=== PATIENT | male | born 1985 | race Caucasian/White ===

== ENCOUNTER 2020-11-18 09:02 | Emergency (ER) | payer OTHER, SELFPAY ==
[2020-11-18] VITALS (54 sets, daily range): BP systolic 80–174; BP diastolic 55–107; PULSE 88–177; RESP 16–43; TEMP 36.6; O2SAT 90–99
[2020-11-18] MEDS: SODIUM CHLORIDE 0.9% 1,000 ML 1000 ML IV (09:19)
[2020-11-18] MEDS: ADENOSINE 6 MG/2 ML VIAL IV (09:22)
--- NOTE | 2020-11-18 09:22 | DI.RAD.S_ITS ---
PROCEDURE: XR CHEST 1V INDICATIONS: chest pain and rapid heart rate TECHNIQUE: One view of the chest was acquired. COMPARISON: None. FINDINGS: Surgical changes and devices: None. Lungs and pleura: Moderate multifocal patchy airspace opacity within the bilateral upper lungs, right mid lung, and bilateral lung bases. No pleural effusions or pneumothorax. Mediastinum: Mediastinal contours appear normal. Heart size is normal. Bones and chest wall: No suspicious bony lesions. Overlying soft tissues appear unremarkable. IMPRESSION: Moderate multifocal pneumonia. Continued plain film surveillance is recommended to ensure resolution, and to exclude underlying or central malignancy. Dictated by: Dayana Mohamud M.D. on 11/18/2020 at 9:42 Approved by: Dayana Mohamud M.D. on 11/18/2020 at 9:42
[2020-11-18] MEDS: ADENOSINE 6 MG/2 ML VIAL 12 MG IV (09:25)
[2020-11-18] MEDS: dilTIAZem 5 MG/ML SDV 25 MG IV (09:30)
[2020-11-18 09:40] LABS: Add Manual Diff / Slide Review NO; Basophils Absolute Auto 0 /uL (0-100); Basophils Percent Auto 0.5 % (0-2); Eosinophils Absolute Auto 0 /uL (0-450); Eosinophils Percent Auto 0.5 % (2-4); Hematocrit 50.7 % (41-53); Hemoglobin 17.2 g/dL (13.5-17.5); Lymphocytes Absolute Auto 1300 /uL (1100-4500); Lymphocytes Percent Auto 13.8 % (25-40); Mean Corpuscular HGB Conc 33.8 % (30-36); Mean Corpuscular Hemoglobin 33.5 PG (26-34); Monocytes Absolute Auto 1000 /uL (0-900); Monocytes Percent Auto 11.4 % (3-14); Neutrophils Absolute Auto 6700 /uL (1500-7000); Neutrophils Percent Auto 73.8 % (50-75); Platelet Count 249 X10^3/uL (150-400); Red Blood Cell Count 5.12 X10^6/uL (4.5-5.9); Red Cell Distribution Width 12.9 % (11.6-14.8); White Blood Cell Count 9.1 X10^3/uL (4.5-11.0)
[2020-11-18 09:42] LABS: INR 1.2 (0.9-1.3)
--- NOTE | 2020-11-18 09:43 | ED.ARRPALP ---
HPI - Arrhythmia/Palpitations General Chief Complaint: Abdominal Pain Stated Complaint: swallon stomach/painful Time Seen by Provider: 11/18/20 09:22 Source: patient Mode of arrival: Ambulatory Limitations: no limitations History of Present Illness HPI narrative: Patient is a 35-year-old male with no past medical history presenting with is abdominal discomfort. He actually says he has been short of breath is for about the last 3-4 days. It is worse with exertion and he has positive orthopnea. No lower extremity edema. He has had some sweats and chills. He is noted to have heart rate in the 170s. He denies any chest pain palpitations. He really just felt like his abdomen was getting Gutierrez. He feels a little nauseous no vomiting. He actually was tested for COVID yesterday which she says was negative. He has no known exposures that he knows of. MD complaint: rapid heart beat Related Data Home Medications Medication Instructions Recorded Confirmed No Known Home Medications 11/18/20 11/18/20 Allergies Allergy/AdvReac Type Severity Reaction Status Date / Time No Known Drug Allergies Allergy Verified 11/18/20 09:42 Review of Systems Review of Systems ROS Unobtainable: All systems reviewed & are unremarkable except as noted in HPI and below Constitutional Constitutional: Reports body ache(s), Reports chills and Reports fatigue ENT Ears, Nose, Mouth, and Throat: Denies change in voice, Denies vertigo, Denies dizziness, Denies neck pain and Denies sore throat Cardiovascular Cardiovascular: Reports as per HPI, Denies syncope, Reports irregular heart rhythm, Reports dyspnea on exertion and Reports orthopnea Respiratory Respiratory: Reports cough and Reports dyspnea on exertion Gastrointestinal Gastrointestinal: Reports bloating and Reports nausea Musculoskeletal Musculoskeletal: Denies back pain, Denies myalgias and Denies neck pain Integumentary/Breasts Skin/Breast: Denies pruritus, Denies erythema, Denies rash and Denies wounds Neurologic Neurologic: Denies vertigo, Denies dizziness and Denies syncope Endocrine Endocrine: Reports fatigue Patient History Medical History Patient denies medical problems Social History Smoking Status: Former smoker Smoking Status: Former smoker alcohol intake frequency: 0-2 drinks per day Substance Use Type: does not use Exam Initial Vital Signs Initial Vital Signs: Vital Signs Temperature 97.8 F 11/18/20 09:10 Pulse Rate 177 H 11/18/20 09:10 Respiratory Rate 21 11/18/20 09:10 Blood Pressure 173/99 H 11/18/20 09:10 Pulse Oximetry 99 11/18/20 09:10 GENERAL: Young 35-year-old male and in no acute distress. HEENT: Head atraumatic,EOMI, pupils reactive, face symmetric, moist mucous membranes CARDIOVASCULAR: Tachycardic regular no murmur RESPIRATORY: Crackles in right base no respiratory distress ABDOMEN: Soft, nontender. Normoactive bowel sounds all 4 quadrants. No guarding or rebound. RECTAL: Hemoccult-positive, no hemorrhoids, nontender : No CVA tenderness EXTREMITIES: Normal range of motion, no clubbing or edema. Neurovascularly intact NEUROLOGICAL: Alert and oriented x4.Normal gait and speech. SKIN: Warm, dry, no laceration, no petechiae, no rashes or lesions. Course Orders Ordered: ED Orders 11/18/20 10:56 US abdomen limited Stat 11/18/20 11:37 Urinalysis and Microscopic Stat Urine Drug Screen, Rapid Stat 11/18/20 12:03 ABG [Arterial Blood Gas] Stat 11/18/20 12:25 High flow/High humidity nasal NOW Discontinued Medications Adenosine (Adenosine 6 Mg/2 Ml Vial) 6 mg IV NOW ONE Stop: 11/18/20 09:23 Last Admin: 11/18/20 09:22 Dose: 6 mg Documented by: OLE Adenosine (Adenosine 6 Mg/2 Ml Vial) 12 mg IV NOW ONE Stop: 11/18/20 09:21 Last Admin: 11/18/20 09:25 Dose: 12 mg Documented by: OLE Aspirin (Aspirin 81 Mg Chew Tab) 324 mg PO NOW ONE Stop: 11/18/20 09:46 Last Admin: 11/18/20 09:56 Dose: 324 mg Documented by: OLE Furosemide (Furosemide 40 Mg/4 Ml Vial) 20 mg IV NOW ONE Stop: 11/18/20 11:12 Last Admin: 11/18/20 11:25 Dose: 20 mg Documented by: OLE Sodium Chloride (Normal Saline 0.9%) 1,000 mls @ 1,000 mls/hr IV CONT [place] Last Infusion: 11/18/20 13:29 Dose: 0 mls/hr Documented by: Infusion: 11/18/20 12:13 Dose: 0 mls/hr Documented by: Infusion: 11/18/20 09:25 Dose: 125 mls/hr Documented by: Admin: 11/18/20 09:19 Dose: 1,000 mls/hr Documented by: OLE Diltiazem HCl 125 mg/ Sodium (Chloride) 125 mls @ 5 mls/hr IV TITRATE [place]; Protocol Last Titration: 11/18/20 12:13 Dose: 0 mg/hr, 0 mls/hr Documented by: Titration: 11/18/20 10:56 Dose: 0 mg/hr, 0 mls/hr Documented by: Titration: 11/18/20 10:42 Dose: 15 mg/hr, 15 mls/hr Documented by: Titration: 11/18/20 10:24 Dose: 10 mg/hr, 10 mls/hr Documented by: Admin: 11/18/20 09:58 Dose: 5 mg/hr, 5 mls/hr Documented by: OLE Ceftriaxone Sodium/Dextrose (Rocephin) 2 gm in 50 mls @ 100 mls/hr IV NOW ONE Stop: 11/18/20 10:25 Last Infusion: 11/18/20 11:00 Dose: 0 mls/hr Documented by: Admin: 11/18/20 10:26 Dose: 100 mls/hr Documented by: OLE Azithromycin 500 mg/ Dextrose 250 mls @ 250 mls/hr IV NOW ONE Stop: 11/18/20 09:57 Last Infusion: 11/18/20 12:13 Dose: 0 mls/hr Documented by: Admin: 11/18/20 11:00 Dose: 250 mls/hr Documented by: OLE Metoprolol Tartrate (Metoprolol Tartrate 5 Mg/5 Ml Inj) 5 mg IV Q5M [place] Stop: 11/18/20 11:11 Last Admin: 11/18/20 11:15 Dose: 5 mg Documented by: Admin: 11/18/20 10:59 Dose: 5 mg Documented by: OLE Ondansetron HCl (Ondansetron 4 Mg/2 Ml Inj) 4 mg IV NOW ONE Stop: 11/18/20 11:57 Last Admin: 11/18/20 12:05 Dose: 4 mg Documented by: OLE Vital Signs Vital signs: Vital Signs - 8 hr 11/18/20 11:30 11/18/20 11:31 11/18/20 11:35 Pulse Rate 126 H 128 H 133 H Respiratory Rate 34 H 34 H 38 H Blood Pressure 174/91 H Pulse Oximetry 92 91 97 11/18/20 11:40 11/18/20 11:45 11/18/20 11:50 Pulse Rate 136 H 136 H 129 H Respiratory Rate 39 H 35 H 43 H Blood Pressure Pulse Oximetry 96 96 96 11/18/20 11:55 11/18/20 12:00 11/18/20 12:05 Pulse Rate 137 H 135 H 137 H Respiratory Rate 39 H 32 H 39 H Blood Pressure 80/60 L Pulse Oximetry 96 93 92 11/18/20 12:10 11/18/20 12:15 11/18/20 12:20 Pulse Rate 141 H 127 H 135 H Respiratory Rate 31 H 30 H 16 Blood Pressure 121/90 Pulse Oximetry 97 97 98 11/18/20 12:24 11/18/20 12:25 11/18/20 12:30 Pulse Rate 141 H 127 H 132 H Respiratory Rate 24 20 22 Blood Pressure 121/90 114/72 Pulse Oximetry 97 99 99 11/18/20 12:35 11/18/20 12:40 11/18/20 12:45 Pulse Rate 137 H 126 H 143 H Respiratory Rate 29 H 21 24 Blood Pressure 97/55 L Pulse Oximetry 98 99 99 11/18/20 12:50 11/18/20 12:55 11/18/20 13:00 Pulse Rate 144 H 138 H 146 H Respiratory Rate 23 25 H 24 Blood Pressure Pulse Oximetry 99 98 98 11/18/20 13:01 11/18/20 13:05 11/18/20 13:10 Pulse Rate 147 H 144 H 153 H Respiratory Rate 20 25 H 19 Blood Pressure 134/74 Pulse Oximetry 98 96 97 MDM - Arrhythmia/Palpitations Lab Data Attestation: I reviewed the patient's lab results. Result diagrams: 11/18/20 09:24 03/31/21 09:24 Labs: Lab Results 11/18/20 11/18/20 11/18/20 Range/Units 09:24 09:24 09:24 WBC 9.1 (4.5-11.0) X10^3/uL RBC 5.12 (4.5-5.9) X10^6/uL Hgb 17.2 (13.5-17.5) g/dL Hct 50.7 (41-53) % MCV 99.0 (80-100) fL MCH 33.5 (26-34) PG MCHC 33.8 (30-36) % RDW 12.9 (11.6-14.8) % Plt Count 249 (150-400) X10^3/uL Neut % (Auto) 73.8 (50-75) % Lymph % (Auto) 13.8 L (25-40) % [place] % (Auto) 11.4 (3-14) % Eos % (Auto) 0.5 L (2-4) % Baso % (Auto) 0.5 (0-2) % Neut # (Auto) 6700 (7194-0949) /uL Lymph # (Auto) 1300 (3299-0890) /uL [place] # (Auto) 1000 H (0-900) /uL Eos # (Auto) 0 (0-450) /uL Baso # (Auto) 0 (0-100) /uL PT 13.0 H (10.1-12.7) SECONDS INR 1.2 (0.9-1.3) APTT 37 H (26.4-36.2) SECONDS ABG pH (7.35-7.45) ABG pCO2 (35-45) mmHg ABG pO2 (80-100) mmHg ABG HCO3 (22-26) mmol/L ABG Total CO2 (21-31) mmol/L ABG O2 Saturation (95-100) % ABG Base Excess (-2-2) mmol/L FiO2 Sodium 136 L (137-145) mmol/L Potassium 4.4 (3.4-5.1) mmol/L Chloride 105 (98-107) mmol/L Carbon Dioxide 23 (22-32) mmol/L BUN 17 (9-20) mg/dL Creatinine 0.77 (0.66-1.25) mg/dL Estimated GFR > 60.0 (>60) mL/min BUN/Creatinine Ratio 22.1 H (6-22) Glucose 110 H (70-100) mg/dL Lactate (0.7-2.1) mmol/L Calcium 9.2 (8.4-10.2) mg/dL Total Bilirubin 1.9 H (0.2-1.3) mg/dL AST 48 (17-59) IU/L ALT 67 H (<50) IU/L Alkaline Phosphatase 77 (38-126) U/L Total Creatine Kinase 85 (55-170) U/L CK-MB (CK-2) TNP CK-MB (CK-2) Rel Index TNP Troponin I 0.045 H (0.01-0.034) ng/mL NT-Pro-B Natriuret Pep (<125) pg/mL Total Protein 6.9 (6.3-8.2) g/dL Albumin 4.0 (3.5-5.0) g/dL Globulin 2.9 (1.7-4.1) g/dL Albumin/Globulin Ratio 1.4 (1.0-2.8) Lipase 22 L (23-300) U/L Procalcitonin (<0.5) ng/mL TSH (0.47-4.68) uIU/mL Urine Color Urine Appearance Urine pH (4.5-8.0) Ur Specific [place] (1.000-1.035) Urine Protein (Negative) Urine Glucose (UA) (Negative) g/dL Urine Ketones (NEGATIVE) Urine Occult Blood (Negative) Urine Nitrate (Negative) Urine Bilirubin (NEGATIVE) Urine Urobilinogen (0.2) E.U./dL Ur Leukocyte Esterase (NEGATIVE) Urine RBC (0-5/HPF) Urine WBC (0-5/HPF) Urine Bacteria (None) Ur Culture Indicated? Micro UA Comment U Opiates 300ng/mL cut (Negative) Ur Oxycodone Screen (Negative) Urine Methadone Screen (Negative) Ur Barbiturates Screen (Negative) U Tricyclic Antidepress (Negative) Ur Phencyclidine Scrn (Negative) Ur Amphetamines Screen (Negative) U Methamphetamines Scrn (Negative) Ur MDMA Scrn (Ecstasy) (Negative) U Benzodiazepines Scrn (Negative) Urine Cocaine Screen (Negative) U Marijuana (THC) Screen (Negative) SARS-CoV-2 (PCR) (Negative) 11/18/20 11/18/20 11/18/20 Range/Units 09:29 09:29 09:29 WBC (4.5-11.0) X10^3/uL RBC (4.5-5.9) X10^6/uL Hgb (13.5-17.5) g/dL Hct (41-53) % MCV (80-100) fL MCH (26-34) PG MCHC (30-36) % RDW (11.6-14.8) % Plt Count (150-400) X10^3/uL Neut % (Auto) (50-75) % Lymph % (Auto) (25-40) % [place] % (Auto) (3-14) % Eos % (Auto) (2-4) % Baso % (Auto) (0-2) % Neut # (Auto) (6456-9989) /uL Lymph # (Auto) (2067-9963) /uL [place] # (Auto) (0-900) /uL Eos # (Auto) (0-450) /uL Baso # (Auto) (0-100) /uL PT (10.1-12.7) SECONDS INR (0.9-1.3) APTT (26.4-36.2) SECONDS ABG pH (7.35-7.45) ABG pCO2 (35-45) mmHg ABG pO2 (80-100) mmHg ABG HCO3 (22-26) mmol/L ABG Total CO2 (21-31) mmol/L ABG O2 Saturation (95-100) % ABG Base Excess (-2-2) mmol/L FiO2 Sodium (137-145) mmol/L Potassium (3.4-5.1) mmol/L Chloride (98-107) mmol/L Carbon Dioxide (22-32) mmol/L BUN (9-20) mg/dL Creatinine (0.66-1.25) mg/dL Estimated GFR (>60) mL/min BUN/Creatinine Ratio (6-22) Glucose (70-100) mg/dL Lactate 1.4 (0.7-2.1) mmol/L Calcium (8.4-10.2) mg/dL Total Bilirubin (0.2-1.3) mg/dL AST (17-59) IU/L ALT (<50) IU/L Alkaline Phosphatase (38-126) U/L Total Creatine Kinase (55-170) U/L CK-MB (CK-2) CK-MB (CK-2) Rel Index Troponin I (0.01-0.034) ng/mL NT-Pro-B Natriuret Pep 1700 H (<125) pg/mL Total Protein (6.3-8.2) g/dL Albumin (3.5-5.0) g/dL Globulin (1.7-4.1) g/dL Albumin/Globulin Ratio (1.0-2.8) Lipase (23-300) U/L Procalcitonin 0.11 (<0.5) ng/mL TSH 1.74 (0.47-4.68) uIU/mL Urine Color Urine Appearance Urine pH (4.5-8.0) Ur Specific [place] (1.000-1.035) Urine Protein (Negative) Urine Glucose (UA) (Negative) g/dL Urine Ketones (NEGATIVE) Urine Occult Blood (Negative) Urine Nitrate (Negative) Urine Bilirubin (NEGATIVE) Urine Urobilinogen (0.2) E.U./dL Ur Leukocyte Esterase (NEGATIVE) Urine RBC (0-5/HPF) Urine WBC (0-5/HPF) Urine Bacteria (None) Ur Culture Indicated? Micro UA Comment U Opiates 300ng/mL cut (Negative) Ur Oxycodone Screen (Negative) Urine Methadone Screen (Negative) Ur Barbiturates Screen (Negative) U Tricyclic Antidepress (Negative) Ur Phencyclidine Scrn (Negative) Ur Amphetamines Screen (Negative) U Methamphetamines Scrn (Negative) Ur MDMA Scrn (Ecstasy) (Negative) U Benzodiazepines Scrn (Negative) Urine Cocaine Screen (Negative) U Marijuana (THC) Screen (Negative) SARS-CoV-2 (PCR) (Negative) 11/18/20 11/18/20 11/18/20 Range/Units 09:52 11:37 11:37 WBC (4.5-11.0) X10^3/uL RBC (4.5-5.9) X10^6/uL Hgb (13.5-17.5) g/dL Hct (41-53) % MCV (80-100) fL MCH (26-34) PG MCHC (30-36) % RDW (11.6-14.8) % Plt Count (150-400) X10^3/uL Neut % (Auto) (50-75) % Lymph % (Auto) (25-40) % [place] % (Auto) (3-14) % Eos % (Auto) (2-4) % Baso % (Auto) (0-2) % Neut # (Auto) (6817-7616) /uL Lymph # (Auto) (2806-1878) /uL [place] # (Auto) (0-900) /uL Eos # (Auto) (0-450) /uL Baso # (Auto) (0-100) /uL PT (10.1-12.7) SECONDS INR (0.9-1.3) APTT (26.4-36.2) SECONDS ABG pH (7.35-7.45) ABG pCO2 (35-45) mmHg ABG pO2 (80-100) mmHg ABG HCO3 (22-26) mmol/L ABG Total CO2 (21-31) mmol/L ABG O2 Saturation (95-100) % ABG Base Excess (-2-2) mmol/L FiO2 Sodium (137-145) mmol/L Potassium (3.4-5.1) mmol/L Chloride (98-107) mmol/L Carbon Dioxide (22-32) mmol/L BUN (9-20) mg/dL Creatinine (0.66-1.25) mg/dL Estimated GFR (>60) mL/min BUN/Creatinine Ratio (6-22) Glucose (70-100) mg/dL Lactate (0.7-2.1) mmol/L Calcium (8.4-10.2) mg/dL Total Bilirubin (0.2-1.3) mg/dL AST (17-59) IU/L ALT (<50) IU/L Alkaline Phosphatase (38-126) U/L Total Creatine Kinase (55-170) U/L CK-MB (CK-2) CK-MB (CK-2) Rel Index Troponin I (0.01-0.034) ng/mL NT-Pro-B Natriuret Pep (<125) pg/mL Total Protein (6.3-8.2) g/dL Albumin (3.5-5.0) g/dL Globulin (1.7-4.1) g/dL Albumin/Globulin Ratio (1.0-2.8) Lipase (23-300) U/L Procalcitonin (<0.5) ng/mL TSH (0.47-4.68) uIU/mL Urine Color Yellow Urine Appearance Clear Urine pH 5.5 (4.5-8.0) Ur Specific [place] 1.010 (1.000-1.035) Urine Protein Trace H (Negative) Urine Glucose (UA) Trace H (Negative) g/dL Urine Ketones 1+ H (NEGATIVE) Urine Occult Blood Negative (Negative) Urine Nitrate Negative (Negative) Urine Bilirubin Negative (NEGATIVE) Urine Urobilinogen 0.2 (0.2) E.U./dL Ur Leukocyte Esterase Trace H (NEGATIVE) Urine RBC None seen (0-5/HPF) Urine WBC None seen (0-5/HPF) Urine Bacteria None seen (None) Ur Culture Indicated? Cult not indicated Micro UA Comment Microscopic normal U Opiates 300ng/mL cut Negative (Negative) Ur Oxycodone Screen Negative (Negative) Urine Methadone Screen Negative (Negative) Ur Barbiturates Screen Negative (Negative) U Tricyclic Antidepress Positive H (Negative) Ur Phencyclidine Scrn Negative (Negative) Ur Amphetamines Screen Negative (Negative) U Methamphetamines Scrn Negative (Negative) Ur MDMA Scrn (Ecstasy) Negative (Negative) U Benzodiazepines Scrn Negative (Negative) Urine Cocaine Screen Negative (Negative) U Marijuana (THC) Screen Negative (Negative) SARS-CoV-2 (PCR) Negative (Negative) 11/18/20 Range/Units 12:03 WBC (4.5-11.0) X10^3/uL RBC (4.5-5.9) X10^6/uL Hgb (13.5-17.5) g/dL Hct (41-53) % MCV (80-100) fL MCH (26-34) PG MCHC (30-36) % RDW (11.6-14.8) % Plt Count (150-400) X10^3/uL Neut % (Auto) (50-75) % Lymph % (Auto) (25-40) % [place] % (Auto) (3-14) % Eos % (Auto) (2-4) % Baso % (Auto) (0-2) % Neut # (Auto) (6731-4420) /uL Lymph # (Auto) (9657-0470) /uL [place] # (Auto) (0-900) /uL Eos # (Auto) (0-450) /uL Baso # (Auto) (0-100) /uL PT (10.1-12.7) SECONDS INR (0.9-1.3) APTT (26.4-36.2) SECONDS ABG pH 7.35 (7.35-7.45) ABG pCO2 34.1 L (35-45) mmHg ABG pO2 79 L (80-100) mmHg ABG HCO3 19 L (22-26) mmol/L ABG Total CO2 20 L (21-31) mmol/L ABG O2 Saturation 95 (95-100) % ABG Base Excess -7.0 L (-2-2) mmol/L FiO2 36 Sodium (137-145) mmol/L Potassium (3.4-5.1) mmol/L Chloride (98-107) mmol/L Carbon Dioxide (22-32) mmol/L BUN (9-20) mg/dL Creatinine (0.66-1.25) mg/dL Estimated GFR (>60) mL/min BUN/Creatinine Ratio (6-22) Glucose (70-100) mg/dL Lactate (0.7-2.1) mmol/L Calcium (8.4-10.2) mg/dL Total Bilirubin (0.2-1.3) mg/dL AST (17-59) IU/L ALT (<50) IU/L Alkaline Phosphatase (38-126) U/L Total Creatine Kinase (55-170) U/L CK-MB (CK-2) CK-MB (CK-2) Rel Index Troponin I (0.01-0.034) ng/mL NT-Pro-B Natriuret Pep (<125) pg/mL Total Protein (6.3-8.2) g/dL Albumin (3.5-5.0) g/dL Globulin (1.7-4.1) g/dL Albumin/Globulin Ratio (1.0-2.8) Lipase (23-300) U/L Procalcitonin (<0.5) ng/mL TSH (0.47-4.68) uIU/mL Urine Color Urine Appearance Urine pH (4.5-8.0) Ur Specific [place] (1.000-1.035) Urine Protein (Negative) Urine Glucose (UA) (Negative) g/dL Urine Ketones (NEGATIVE) Urine Occult Blood (Negative) Urine Nitrate (Negative) Urine Bilirubin (NEGATIVE) Urine Urobilinogen (0.2) E.U./dL Ur Leukocyte Esterase (NEGATIVE) Urine RBC (0-5/HPF) Urine WBC (0-5/HPF) Urine Bacteria (None) Ur Culture Indicated? Micro UA Comment U Opiates 300ng/mL cut (Negative) Ur Oxycodone Screen (Negative) Urine Methadone Screen (Negative) Ur Barbiturates Screen (Negative) U Tricyclic Antidepress (Negative) Ur Phencyclidine Scrn (Negative) Ur Amphetamines Screen (Negative) U Methamphetamines Scrn (Negative) Ur MDMA Scrn (Ecstasy) (Negative) U Benzodiazepines Scrn (Negative) Urine Cocaine Screen (Negative) U Marijuana (THC) Screen (Negative) SARS-CoV-2 (PCR) (Negative) Imaging Data Chest x-ray: Radiologist's Impresson: PROCEDURE: XR CHEST 1V INDICATIONS: chest pain and rapid heart rate TECHNIQUE: One view of the chest was acquired. COMPARISON: None. FINDINGS: Surgical changes and devices: None. Lungs and pleura: Moderate multifocal patchy airspace opacity within the bilateral upper lungs, right mid lung, and bilateral lung bases. No pleural effusions or pneumothorax. Mediastinum: Mediastinal contours appear normal. Heart size is normal. Bones and chest wall: No suspicious bony lesions. Overlying soft tissues appear unremarkable. IMPRESSION: Moderate multifocal pneumonia. Continued plain film surveillance is recommended to ensure resolution, and to exclude underlying or central malignancy. Dictated by: Dayana Mohamud M.D. on 11/18/2020 at 9:42 US - abdomen: Radiologist's Impresson: PROCEDURE: US ABDOMEN LIMITED INDICATIONS: Right upper quadrant abdominal pain, elevated bilirubin TECHNIQUE: Real-time focused scanning was performed of the abdomen, with image documentation. COMPARISON: None. FINDINGS: Normal size and appearance of the liver. No hepatic mass. No intrahepatic or extrahepatic biliary ductal dilatation. Normal appearance of the gallbladder with no sludge, gallstone, wall thickening, or pericholecystic fluid. Pancreas is not identified due to obscuration by overlying bowel gas. There is a small right pleural effusion partially visualized. IMPRESSION: No acute finding in the abdomen to explain symptoms. Small right pleural effusion noted. Dictated by: Zackary Arita M.D. on 11/18/2020 at 11:33 CT scan - chest: Radiologist's Impresson: PROCEDURE: CT ANGIO CHEST PE PROTOCOL INDICATIONS: New onset atrial fibrillation. TECHNIQUE: After the administration of intravenous contrast, 2 mm thick sections acquired from the pulmonary apices to the posterior costophrenic angles. 3-dimensional maximum intensity projection (MIP) coronal and sagittal reformats were then acquired through the thorax. For radiation dose reduction, the following was used: automated exposure control, adjustment of mA and/or kV according to patient size. COMPARISON: [facility], CR, XR CHEST 1V, 11/18/2020, 9:28. FINDINGS: Image quality: Excellent. Pulmonary arteries: Pulmonary arteries are normal in size, and demonstrate no intraluminal filling defects to suggest central pulmonary embolism. Lungs and pleura: There are bilateral nodular and ground-glass airspace opacities predominantly involving the upper lobes but also involving right middle lobe and lower lobes with peribronchial/perilymphatic distribution. Moderate pleural effusions present bilaterally with bibasilar atelectasis. There is bronchial wall thickening bilaterally. No pneumothorax. Central and peripheral airways are patent. Mediastinum: Heart size is moderately increased. No pericardial effusion. Enlarged mediastinal or hilar lymph nodes are present. For example, there is a 1 x 1.5 cm prevascular lymph node. A 1.1 cm paratracheal lymph node is identified. Enlarged right hilar lymph node measures 1.1 cm. Thoracic aorta is normal in caliber and enhancement. Esophagus is normal in caliber, without hiatal hernia. Bones and chest wall: No suspicious bony lesions. Ribs and thoracic spine appear intact throughout. Thyroid gland is normal. No axillary or supraclavicular adenopathy. Abdomen: Visualized upper abdominal solid organs appear normal in the early arterial phase of enhancement. IMPRESSION: 1. No evidence for pulmonary embolism. 2. Moderate cardiomegaly. There are filling defects in right atrium and right ventricle, which may be thrombi or artifacts. Recommend echocardiogram for further evaluation. Reflux of IV contrast into the hepatic vein suggests right heart strain. 3. Bilateral nodular and ground-glass airspace opacities, predominantly involving upper lobes with perilymphatic/peribronchial distribution. There is bronchial wall thickening. Differential diagnoses include infection, inflammatory process including pulmonary injuries from vaping, and, less likely, neoplasm. 4. Moderate pleural effusions bilaterally. 5. Mediastinal and bilateral hilar lymphadenopathy, most likely reactive. Recommend imaging follow-up and clinical correlation. The result was discussed with Dr. Ruiz. Dictated by: Christiano Rios M.D. on 11/18/2020 at 9:35 ECG Data Attestation: I personally reviewed and interpreted this ECG as follows: Prior ECG tracings: not available for review Interpretation: atrial fibrillation versus SVT rate [address] changes no delta waves seen all. Not likely to be WPW. MDM Narrative Medical decision making narrative: The patient initially tachycardic in the 170s and family regular no delta wave identified on the EKG. Possible SVT versus AFib. Adenosine given 6 mg with out response. 2nd dose of 12 mg given it did slow and appears irregular. He was and can been 10 mg of diltiazem for AFib with RVR which seem to slow his heart rate down into the 140s temporarily. I started increasing again to heart rate in the 160s. Diltiazem was stopped and he was given Lopressor pushes. Patient is relatively asymptomatic unclear when this started. Chest x-ray does show pneumonia he is having signs and symptoms of pneumonia. 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 He says he quit last week. He does have episodes where he gets quite diaphoretic and needs to sit on the edge of the bed. ABG does not show hypercapnia and he is oxygenating on 4 L of oxygen however he is placed on high-flow nasal cannula to a possibly help with some breathing. Patient continues to have intermittent abdominal discomfort. 11:25am jono, cardiology, agrees with transfer admit to hospitalist 12:35pm Dr. [place], hospitalist [facility] updated his symptoms test results and agree with transfer Critical Care Time Critical Care Time Critical Care Time: Yes Total Critical Care Time: 60 Attestation: The high probability of a clinically significant, sudden or life threatening deterioration of the [cardiovascular] system(s) required my full and direct attention, intervention and personal management. The aggregate critical care time was 60 minutes. This time is in addition to time spent performing reported procedures but includes the following: [x] Data Review and interpretation [x] Patient assessment and monitoring of vital signs [x] Documentation [x] Medication orders and management Discharge Plan Departure Patient Disposition: [facility] Clinical Impression: Atrial fibrillation with rapid ventricular response Pneumonia Qualifiers: Pneumonia type: due to unspecified organism Laterality: bilateral Lung location: unspecified part of lung Qualified Code(s): J18.9 - Pneumonia, unspecified organism Prescriptions: No Action No Known Home Medications RF: 0
[2020-11-18 09:44] LABS: PTT Partial Thromboplastin Tim 37 SECONDS (26.4-36.2)
[2020-11-18 09:47] LABS: Alanine Aminotransferase 67 IU/L (<50); Albumin Globulin Ratio 1.4 (1.0-2.8); Alkaline Phosphatase 77 U/L (38-126); Aspartate Aminotransferase 48 IU/L (17-59); BUN Creatinine Ratio 22.1 (6-22); Bilirubin Total 1.9 mg/dL (0.2-1.3); Blood Urea Nitrogen 17 mg/dL (9-20); Calcium 9.2 mg/dL (8.4-10.2); Carbon Dioxide 23 mmol/L (22-32); Chloride 105 mmol/L (98-107); Creatine Kinase 85 U/L (55-170); Estimated Glomerular Filt Rate > 60.0 mL/min (>60); Globulin 2.9 g/dL (1.7-4.1); Glucose 110 mg/dL (70-100); HEMOLYSIS 19 (0-50); Lipase 22 U/L (23-300); Potassium 4.4 mmol/L (3.4-5.1); Sodium 136 mmol/L (137-145); Total Protein 6.9 g/dL (6.3-8.2)
[2020-11-18] MEDS: ASPIRIN 81 MG CHEW TAB 324 MG PO (09:56)
--- NOTE | 2020-11-18 09:57 | DI.CT.S_ITS ---
PROCEDURE: CT ANGIO CHEST PE PROTOCOL INDICATIONS: New onset atrial fibrillation. TECHNIQUE: After the administration of intravenous contrast, 2 mm thick sections acquired from the pulmonary apices to the posterior costophrenic angles. 3-dimensional maximum intensity projection (MIP) coronal and sagittal reformats were then acquired through the thorax. For radiation dose reduction, the following was used: automated exposure control, adjustment of mA and/or kV according to patient size. COMPARISON: [facility], CR, XR CHEST 1V, 11/18/2020, 9:28. FINDINGS: Image quality: Excellent. Pulmonary arteries: Pulmonary arteries are normal in size, and demonstrate no intraluminal filling defects to suggest central pulmonary embolism. Lungs and pleura: There are bilateral nodular and ground-glass airspace opacities predominantly involving the upper lobes but also involving right middle lobe and lower lobes with peribronchial/perilymphatic distribution. Moderate pleural effusions present bilaterally with bibasilar atelectasis. There is bronchial wall thickening bilaterally. No pneumothorax. Central and peripheral airways are patent. Mediastinum: Heart size is moderately increased. No pericardial effusion. Enlarged mediastinal or hilar lymph nodes are present. For example, there is a 1 x 1.5 cm prevascular lymph node. A 1.1 cm paratracheal lymph node is identified. Enlarged right hilar lymph node measures 1.1 cm. Thoracic aorta is normal in caliber and enhancement. Esophagus is normal in caliber, without hiatal hernia. Bones and chest wall: No suspicious bony lesions. Ribs and thoracic spine appear intact throughout. Thyroid gland is normal. No axillary or supraclavicular adenopathy. Abdomen: Visualized upper abdominal solid organs appear normal in the early arterial phase of enhancement. IMPRESSION: 1. No evidence for pulmonary embolism. 2. Moderate cardiomegaly. There are filling defects in right atrium and right ventricle, which may be thrombi or artifacts. Recommend echocardiogram for further evaluation. Reflux of IV contrast into the hepatic vein suggests right heart strain. 3. Bilateral nodular and ground-glass airspace opacities, predominantly involving upper lobes with perilymphatic/peribronchial distribution. There is bronchial wall thickening. Differential diagnoses include infection, inflammatory process including pulmonary injuries from vaping, and, less likely, neoplasm. 4. Moderate pleural effusions bilaterally. 5. Mediastinal and bilateral hilar lymphadenopathy, most likely reactive. Recommend imaging follow-up and clinical correlation. The result was discussed with Dr. Ruiz. Dictated by: Christiano Rios M.D. on 11/18/2020 at 9:35 Approved by: Christiano Rios M.D. on 11/18/2020 at 10:30
[2020-11-18 09:58] LABS: Troponin I 0.045 ng/mL (0.01-0.034)
[2020-11-18] MEDS: dilTIAZem 125 MG in SODIUM CHLORIDE 0.9% 100 ML IV (09:58)
[2020-11-18] MEDS: CEFTRIAXONE 2 GM/50 ML FROZ.PIGGY IV (10:26)
[2020-11-18 10:34] LABS: Lactate (Lactic Acid) 1.4 mmol/L (0.7-2.1)
[2020-11-18 10:44] LABS: NT-proBNP (BNP-Adult 18+) 1700 pg/mL (<125)
[2020-11-18 10:47] LABS: COVID19 - ADMIT (NP swab/PCR) Negative (Negative)
[2020-11-18 10:51] LABS: Procalcitonin 0.11 ng/mL (<0.5)
--- NOTE | 2020-11-18 10:56 | DI.US.S_ITS ---
PROCEDURE: US ABDOMEN LIMITED INDICATIONS: Right upper quadrant abdominal pain, elevated bilirubin TECHNIQUE: Real-time focused scanning was performed of the abdomen, with image documentation. COMPARISON: None. FINDINGS: Normal size and appearance of the liver. No hepatic mass. No intrahepatic or extrahepatic biliary ductal dilatation. Normal appearance of the gallbladder with no sludge, gallstone, wall thickening, or pericholecystic fluid. Pancreas is not identified due to obscuration by overlying bowel gas. There is a small right pleural effusion partially visualized. IMPRESSION: No acute finding in the abdomen to explain symptoms. Small right pleural effusion noted. Dictated by: Zackary Arita M.D. on 11/18/2020 at 11:33 Approved by: Zackary Arita M.D. on 11/18/2020 at 11:34
[2020-11-18] MEDS: METOPROLOL TARTRATE 5 MG/5 ML INJ IV ×2 (10:59→11:15)
[2020-11-18] MEDS: AZITHROMYCIN 500 MG in DEXTROSE 5% IN WATER 250 ML IV (11:00)
[2020-11-18 11:06] LABS: Thyroid Stimulating Hormone 1.74 uIU/mL (0.47-4.68)
[2020-11-18] MEDS: FUROSEMIDE 40 MG/4 ML VIAL 20 MG IV (11:25)
[2020-11-18 11:50] LABS: Bacteria Urine None Seen; RBC Urine None Seen (0-5/HPF); WBC Urine None Seen (0-5/HPF)
[2020-11-18 11:52] LABS: Appearance Urine UA CLEAR; Bilirubin Urine UA NEGATIVE (NEGATIVE); Color Urine UA YELLOW; Glucose Urine UA TRACE g/dL (Negative); Ketones Urine UA 1+ (NEGATIVE); Leukocyte Esterase Urine UA TRACE (NEGATIVE); Nitrite Urine UA NEGATIVE (Negative); Occult Blood Urine UA NEGATIVE (Negative); Protein Urine UA TRACE (Negative); Urobilinogen Urine UA 0.2 E.U./dL (0.2); pH Urine UA 5.5 (4.5-8.0)
[2020-11-18 11:54] LABS: UR Morphine/Opiate cutoff 300 Negative (Negative); Ur Creatinine Normal (Normal); Ur Specific Gravity Normal (Normal); Urine Amphetamines Negative (Negative); Urine Barbiturates Negative (Negative); Urine Benzodiazepines Negative (Negative); Urine Cocaine Negative (Negative); Urine MDMA Negative (Negative); Urine Methadone Negative (Negative); Urine Methamphetamines Negative (Negative); Urine Oxycodone Negative (Negative); Urine Phencyclidine Negative (Negative); Urine Tetrahydrocannabinol Negative (Negative); Urine Tricyclic Antidepressant Positive (Negative); Urine pH Normal (Normal)
[2020-11-18 11:57] LABS: Culture Indicated Urine Cult Not Indicated; Urine Comments Microscopic Normal
[2020-11-18] MEDS: ONDANSETRON 4 MG/2 ML INJ IV (12:05)
[2020-11-18 13:38] LABS: Fractionated Inspired Oxygen 36; HCO3 ABG 19 mmol/L (22-26); Oxygen Saturation ABG 95 % (95-100); PCO2 ABG 34.1 mmHg (35-45); PO2 ABG 79 mmHg (80-100); TCO2 ABG 20 mmol/L (21-31); pH ABG 7.35 (7.35-7.45)
--- NOTE | 2020-11-18 20:11 | PC.NURSE ---
Pt's keys had been left @ ED to be picked up by friend. Have not been picked up yet. Called [facility] @[phone] and relayed message to pt that keys would be labeled and left at ED registration desk.
== END 2020-11-18 13:35 | disposition short-term general hospital (02) ==
PROVIDERS: Emergency Provider Emergency Medicine
DX: I48.91 Unspecified atrial fibrillation (principal); J18.9 Pneumonia, unspecified organism
CPT/HCPCS: 36415; 36600; 71045; 71275; 76705; 80053; 80305; 81001; 82550; 82805; 83605; 83690; 83880; 84145; 84443; 84484; 85025; 85610; 85730; 87040; 87635; 93005; 96361; 96365; 96367; 96375; 96376; 99285; 99291; J0153; J0696; J1940; J2405; Q9967

== ENCOUNTER 2021-03-08 16:22 | Emergency (ER) | payer OTHER, SELFPAY ==
[2021-03-08] VITALS (8 sets, daily range): BP systolic 134–143; BP diastolic 74–81; PULSE 76–90; RESP 12–32; TEMP 36.9; O2SAT 97–98; BMI 25.7
--- NOTE | 2021-03-08 16:31 | DI.RAD.S_ITS ---
PROCEDURE: XR CHEST 1V INDICATIONS: chest pain TECHNIQUE: One view of the chest was acquired. COMPARISON: [facility], CR, XR CHEST 1V, 11/18/2020, 9:28. FINDINGS: Surgical changes and devices: None. Lungs and pleura: Lungs are clear. No pleural effusions or pneumothorax. Mediastinum: Mediastinal contours appear normal. Heart size is normal. Bones and chest wall: No suspicious bony lesions. Overlying soft tissues appear unremarkable. IMPRESSION: No acute pulmonary process. Dictated by: Merari Dacosta M.D. on 03/08/2021 at 16:56 Approved by: Merari Dacosta M.D. on 03/08/2021 at 16:56
[2021-03-08 16:39] LABS: Add Manual Diff / Slide Review NO; Basophils Absolute Auto 0 /uL (0-100); Basophils Percent Auto 0.5 % (0-2); Eosinophils Absolute Auto 0 /uL (0-450); Eosinophils Percent Auto 0.1 % (2-4); Hematocrit 40.1 % (41-53); Hemoglobin 13.8 g/dL (13.5-17.5); Lymphocytes Absolute Auto 800 /uL (1100-4500); Lymphocytes Percent Auto 14.9 % (25-40); Mean Corpuscular HGB Conc 34.3 % (30-36); Mean Corpuscular Hemoglobin 32.8 PG (26-34); Mean Corpuscular Volume 95.5 fL (80-100); Monocytes Absolute Auto 500 /uL (0-900); Monocytes Percent Auto 9.6 % (3-14); Neutrophils Absolute Auto 4000 /uL (1500-7000); Neutrophils Percent Auto 74.9 % (50-75); Platelet Count 205 X10^3/uL (150-400); Red Cell Distribution Width 14.7 % (11.6-14.8); White Blood Cell Count 5.4 X10^3/uL (4.5-11.0)
[2021-03-08 16:45] LABS: INR 1.1 (0.9-1.3); Prothrombin Time 12.2 SECONDS (10.1-12.7)
--- NOTE | 2021-03-08 16:46 | ED.DIZZY ---
HPI - Dizziness General Chief Complaint: Dizziness Stated Complaint: dizzy/CHF Time Seen by Provider: 03/08/21 16:23 History of Present Illness HPI Narrative: Patient is a 35-year-old male with history alcohol abuse, heart failure, nonischemic cardiomyopathy alcohol induced, paroxysmal atrial fibrillation on Eliquis presenting today with dizziness and lightheadedness. he is supposed to wear a LifeVest for 3 months however he has not been wearing it he says he wore for about 2 months. He started drinking again he drank too much last night. He thought he would get walk in the [place] in order to feel better. He was walking when suddenly felt dizzy and lightheaded. He is able to look at his apple watch which showed a heart rate between 90 and 100. Did not pass out or lose consciousness. He denies any chest pain or palpitations. He got scared and called 911. He is overall feeling a little bit better. I am able to review you do have records. There is also supposed to have TTE and early February why not sure that he has had that. EF is 10-15%. Related Data Home Medications Medication Instructions Recorded Confirmed No Known Home Medications 11/18/20 11/18/20 Allergies Allergy/AdvReac Type Severity Reaction Status Date / Time No Known Drug Allergies Allergy Verified 03/08/21 17:48 Review of Systems Review of Systems ROS Unobtainable: All systems reviewed & are unremarkable except as noted in HPI and below Constitutional Constitutional: Denies chills Eyes Eyes: Denies blurry vision ENT Ears, Nose, Mouth, and Throat: Reports dizziness and Denies mouth pain Cardiovascular Cardiovascular: Denies chest pain, Denies chest pain at rest, Denies syncope, Denies edema, Reports palpitations, Denies dyspnea and Denies dyspnea on exertion Respiratory Respiratory: Denies cough, Denies dyspnea and Denies dyspnea on exertion Gastrointestinal Gastrointestinal: Denies abdominal pain, Denies nausea and Denies vomiting Genitourinary Genitourinary: Denies urinary frequency and Denies urinary hesitancy Musculoskeletal Musculoskeletal: Denies muscle weakness Integumentary/Breasts Skin/Breast: Denies rash Neurologic Neurologic: Reports dizziness, Denies syncope, Denies memory loss and Denies seizure-like activity Psychiatric Psychiatric: Denies memory loss Endocrine Endocrine: Reports palpitations Patient History Medical History Former cigarette smoker Patient denies medical problems Vaping nicotine dependence, tobacco product Social History (System 11/19/20 @ 08:27 by Lady Daily Blandon) Smoking Status: Former smoker Smoking Status: Former smoker tobacco type: vaping alcohol intake frequency: 0-2 drinks per day Substance Use Type: does not use Exam Initial Vital Signs Initial Vital Signs: Vital Signs Temperature 98.4 F 03/08/21 16:28 Pulse Rate 87 03/08/21 16:28 Respiratory Rate 16 03/08/21 16:28 Blood Pressure 134/81 03/08/21 16:28 Pulse Oximetry 98 03/08/21 16:28 GENERAL: Alert surprisingly well-appearing 35-year-old male and in no acute distress. HEENT: Head atraumatic,EOMI, pupils reactive, face symmetric, moist mucous membrane CARDIOVASCULAR: Regular rate and rhythm without murmurs, rubs or gallops. RESPIRATORY: Breath sounds equal bilaterally, no wheezes rales or rhonchi. ABDOMEN: Soft, nontender. Normoactive bowel sounds all 4 quadrants. No guarding or rebound. EXTREMITIES: Normal range of motion, no clubbing or edema. Neurovascularly intact NEUROLOGICAL: Alert and oriented x4.Normal gait and speech. SKIN: Warm, dry, no laceration, no petechiae, no rashes or lesions. Course Orders Ordered: ED Orders 03/08/21 16:20 Complete Blood Count AUTO DIFF Stat Comprehensive Metabolic Panel Stat Lipase Stat Magnesium Stat NT-proBNP (BNP-Adult 18+) Stat Partial Thromboplastin Time Stat Prothrombin Time INR Stat Troponin & CK Cardiac Panel Stat 03/08/21 16:31 XR chest 1V Stat EKG-12 Lead Stat Vital Signs Vital signs: Vital Signs - 8 hr 03/08/21 16:28 03/08/21 17:13 03/08/21 17:15 Temperature 98.4 F Pulse Rate 87 86 90 Respiratory Rate 16 18 19 Blood Pressure 134/81 Pulse Oximetry 98 98 98 03/08/21 17:30 03/08/21 17:45 03/08/21 18:00 Temperature Pulse Rate 85 85 81 Respiratory Rate 15 21 32 H Blood Pressure Pulse Oximetry 97 98 98 03/08/21 18:04 03/08/21 18:15 Temperature Pulse Rate 76 82 Respiratory Rate 12 12 Blood Pressure 143/74 H Pulse Oximetry 97 98 MDM - Dizziness Lab Data Attestation: I reviewed the patient's lab results. Result diagrams: 03/08/21 16:20 03/08/21 16:20 Labs: Lab Results 03/08/21 03/08/21 03/08/21 Range/Units 16:20 16:20 16:20 WBC 5.4 (4.5-11.0) X10^3/uL RBC 4.20 L (4.5-5.9) X10^6/uL Hgb 13.8 (13.5-17.5) g/dL Hct 40.1 L (41-53) % MCV 95.5 (80-100) fL MCH 32.8 (26-34) PG MCHC 34.3 (30-36) % RDW 14.7 (11.6-14.8) % Plt Count 205 (150-400) X10^3/uL Neut % (Auto) 74.9 (50-75) % Lymph % (Auto) 14.9 L (25-40) % Love % (Auto) 9.6 (3-14) % Eos % (Auto) 0.1 L (2-4) % Baso % (Auto) 0.5 (0-2) % Neut # (Auto) 4000 (1164-1784) /uL Lymph # (Auto) 800 L (5368-4671) /uL Love # (Auto) 500 (0-900) /uL Eos # (Auto) 0 (0-450) /uL Baso # (Auto) 0 (0-100) /uL PT 12.2 (10.1-12.7) SECONDS INR 1.1 (0.9-1.3) APTT 37 H (26.4-36.2) SECONDS Sodium 134 L (137-145) mmol/L Potassium 3.9 (3.4-5.1) mmol/L Chloride 98 (98-107) mmol/L Carbon Dioxide 28 (22-32) mmol/L BUN 11 (9-20) mg/dL Creatinine 0.60 L (0.66-1.25) mg/dL Estimated GFR > 60.0 (>60) mL/min BUN/Creatinine Ratio 18.3 (6-22) Glucose 109 H (70-100) mg/dL Calcium 9.7 (8.4-10.2) mg/dL Magnesium 1.6 (1.6-2.3) mg/dL Total Bilirubin 1.2 (0.2-1.3) mg/dL AST 34 (17-59) IU/L ALT 23 (<50) IU/L Alkaline Phosphatase 50 (38-126) U/L Total Creatine Kinase 151 (55-170) U/L CK-MB (CK-2) 0.88 (<2.37) ng/mL CK-MB (CK-2) Rel Index 0.6 L (1.5-5.0) % Troponin I < 0.012 (0.01-0.034) ng/mL NT-Pro-B Natriuret Pep (<125) pg/mL Total Protein 7.7 (6.3-8.2) g/dL Albumin 4.5 (3.5-5.0) g/dL Globulin 3.2 (1.7-4.1) g/dL Albumin/Globulin Ratio 1.4 (1.0-2.8) Lipase 26 (23-300) U/L 03/08/21 Range/Units 16:20 WBC (4.5-11.0) X10^3/uL RBC (4.5-5.9) X10^6/uL Hgb (13.5-17.5) g/dL Hct (41-53) % MCV (80-100) fL MCH (26-34) PG MCHC (30-36) % RDW (11.6-14.8) % Plt Count (150-400) X10^3/uL Neut % (Auto) (50-75) % Lymph % (Auto) (25-40) % Love % (Auto) (3-14) % Eos % (Auto) (2-4) % Baso % (Auto) (0-2) % Neut # (Auto) (4163-1169) /uL Lymph # (Auto) (7168-0920) /uL Love # (Auto) (0-900) /uL Eos # (Auto) (0-450) /uL Baso # (Auto) (0-100) /uL PT (10.1-12.7) SECONDS INR (0.9-1.3) APTT (26.4-36.2) SECONDS Sodium (137-145) mmol/L Potassium (3.4-5.1) mmol/L Chloride (98-107) mmol/L Carbon Dioxide (22-32) mmol/L BUN (9-20) mg/dL Creatinine (0.66-1.25) mg/dL Estimated GFR (>60) mL/min BUN/Creatinine Ratio (6-22) Glucose (70-100) mg/dL Calcium (8.4-10.2) mg/dL Magnesium (1.6-2.3) mg/dL Total Bilirubin (0.2-1.3) mg/dL AST (17-59) IU/L ALT (<50) IU/L Alkaline Phosphatase (38-126) U/L Total Creatine Kinase (55-170) U/L CK-MB (CK-2) (<2.37) ng/mL CK-MB (CK-2) Rel Index (1.5-5.0) % Troponin I (0.01-0.034) ng/mL NT-Pro-B Natriuret Pep 13 (<125) pg/mL Total Protein (6.3-8.2) g/dL Albumin (3.5-5.0) g/dL Globulin (1.7-4.1) g/dL Albumin/Globulin Ratio (1.0-2.8) Lipase (23-300) U/L Imaging Data Chest x-ray: Radiologist's Impression: PROCEDURE: XR CHEST 1V INDICATIONS: chest pain TECHNIQUE: One view of the chest was acquired. COMPARISON: [facility], , XR CHEST 1V, 11/18/2020, 9:28. FINDINGS: Surgical changes and devices: None. Lungs and pleura: Lungs are clear. No pleural effusions or pneumothorax. Mediastinum: Mediastinal contours appear normal. Heart size is normal. Bones and chest wall: No suspicious bony lesions. Overlying soft tissues appear unremarkable. IMPRESSION: No acute pulmonary process. Dictated by: Merari Dacosta M.D. on 03/08/2021 at 16:56 ECG Data Interpretation: Normal sinus rhythm rate 78 IL interval 172 QTC 437 QRS 98 MDM Narrative Medical decision making narrative: Patient overall appears well he is not having any chest pain he is in normal sinus rhythm. We have had long discussions about his house is not a good idea to drink alcohol while on Eliquis, and the fact that alcohol is the cause of his heart problems to begin with. I have also stressed the importance of wearing his LifeVest. He understands he overall feels bad he recognizes that he needs to stop drinking. We discussed how he should taper off instead of stopping cold turkey. At this time he is showing no signs of heart failure BNP is negative he has no difficulty breathing blood work is overall reassuring. He did not pass out or have a syncopal episode. So that is also reassuring. 1830 Dr. [facility], at this time agrees with encouragement to be compliant and will follow-up in clinic Discharge Plan Departure Patient Disposition: Home Clinical Impression: Non-ischemic cardiomyopathy, Alcohol abuse Instructions: Alcohol Use Disorder, DI for Heart Failure Activity Restrictions/Additional Instructions: *You have been diagnosed with paroxysmal atrial fibrillation, congestive heart failure, alcohol abuse *What to do: It is imperative that he wear your life vest and follow-up with cardiology at [facility]. I strongly recommend that you stop drinking however you need to decrease your drinking slowly and taper off for C do not go through withdrawals. *Continue to take medications as directed At your request you're medications have been faxed to *Follow up with your primary care provider in 2-3 days Follow-up with [facility] call tomorrow to schedule appointment I spoke with them today *Return to ER if you should have increasing palpitations shortness of breath chest pain passing out or any new, worsening or concerning symptoms Prescriptions: No Action No Known Home Medications RF: 0
[2021-03-08 16:47] LABS: PTT Partial Thromboplastin Tim 37 SECONDS (26.4-36.2)
[2021-03-08 16:50] LABS: Alanine Aminotransferase 23 IU/L (<50); Albumin 4.5 g/dL (3.5-5.0); Albumin Globulin Ratio 1.4 (1.0-2.8); Alkaline Phosphatase 50 U/L (38-126); Aspartate Aminotransferase 34 IU/L (17-59); BUN Creatinine Ratio 18.3 (6-22); Bilirubin Total 1.2 mg/dL (0.2-1.3); Blood Urea Nitrogen 11 mg/dL (9-20); Calcium 9.7 mg/dL (8.4-10.2); Carbon Dioxide 28 mmol/L (22-32); Chloride 98 mmol/L (98-107); Creatine Kinase 151 U/L (55-170); Estimated Glomerular Filt Rate > 60.0 mL/min (>60); Globulin 3.2 g/dL (1.7-4.1); Glucose 109 mg/dL (70-100); HEMOLYSIS < 15 (0-50); Lipase 26 U/L (23-300); Magnesium 1.6 mg/dL (1.6-2.3); Potassium 3.9 mmol/L (3.4-5.1); Sodium 134 mmol/L (137-145); Total Protein 7.7 g/dL (6.3-8.2)
[2021-03-08 17:02] LABS: Troponin I < 0.012 ng/mL (0.01-0.034)
[2021-03-08 17:05] LABS: CKMB % Relative Index 0.6 % (1.5-5.0); Creatine Kinase MB 0.88 ng/mL (<2.37)
[2021-03-08 17:23] LABS: NT-proBNP (BNP-Adult 18+) 13 pg/mL (<125)
== END 2021-03-08 18:57 | disposition home or self-care (01) ==
PROVIDERS: Emergency Provider Emergency Medicine
DX: I42.8 Other cardiomyopathies (principal); F10.10 Alcohol abuse, uncomplicated; R07.9 Chest pain, unspecified
CPT/HCPCS: 36415; 71045; 80053; 82550; 82553; 83690; 83735; 83880; 84484; 85025; 85610; 85730; 93005; 93010; 99283; 99284

== ENCOUNTER → 2021-11-04 14:54 | Outpatient (CLI) | payer OTHER, SELFPAY ==
[2021-11-04 15:23] LABS: Add Manual Diff / Slide Review NO; Basophils Absolute Auto 0 /uL (0-100); Basophils Percent Auto 0.6 % (0-2); Eosinophils Absolute Auto 100 /uL (0-450); Eosinophils Percent Auto 1.5 % (2-4); Hematocrit 40.7 % (41-53); Hemoglobin 14.1 g/dL (13.5-17.5); Lymphocytes Absolute Auto 1400 /uL (1100-4500); Lymphocytes Percent Auto 26.9 % (25-40); Mean Corpuscular HGB Conc 34.6 % (30-36); Mean Corpuscular Hemoglobin 33.1 PG (26-34); Mean Corpuscular Volume 95.7 fL (80-100); Monocytes Absolute Auto 500 /uL (0-900); Monocytes Percent Auto 10.4 % (3-14); Neutrophils Absolute Auto 3100 /uL (1500-7000); Neutrophils Percent Auto 60.6 % (50-75); Platelet Count 224 X10^3/uL (150-400); Red Blood Cell Count 4.25 X10^6/uL (4.5-5.9); White Blood Cell Count 5.1 X10^3/uL (4.5-11.0)
[2021-11-04 15:36] LABS: Alanine Aminotransferase 21 IU/L (<50); Albumin Globulin Ratio 1.4 (1.0-2.8); Alkaline Phosphatase 48 U/L (38-126); Aspartate Aminotransferase 37 IU/L (17-59); Bilirubin Total 1.6 mg/dL (0.2-1.3); Blood Urea Nitrogen 12 mg/dL (9-20); Calcium 9.2 mg/dL (8.4-10.2); Carbon Dioxide 26 mmol/L (22-32); Chloride 99 mmol/L (98-107); Estimated Glomerular Filt Rate > 60.0 mL/min (>60); Globulin 3.5 g/dL (1.7-4.1); Glucose 95 mg/dL (70-100); HEMOLYSIS 19 (0-50); Potassium 4.3 mmol/L (3.4-5.1); Sodium 134 mmol/L (137-145); Total Protein 8.5 g/dL (6.3-8.2)
[2021-11-04 15:44] LABS: NT-proBNP (BNP-Adult 18+) < 11 pg/mL (<125)
== END ==
PROVIDERS: Referring Provider Internal Medicine Cardiovascular Disease; Visit Provider Internal Medicine Cardiovascular Disease
DX: I50.20 Unspecified systolic (congestive) heart failure (principal); I48.0 Paroxysmal atrial fibrillation
CPT/HCPCS: 36415; 80053; 83880; 85025

== ENCOUNTER 2023-08-21 10:39 | Inpatient (IN) | payer OTHER, SELFPAY ==
[2023-08-21] VITALS (53 sets, daily range): BP systolic 90–139; BP diastolic 57–97; PULSE 117–194; RESP 10–37; TEMP 32–36.7; O2SAT 86–100; BMI 24.9
--- NOTE | 2023-08-21 10:44 | DI.RAD.S_ITS ---
PROCEDURE: XR CHEST 1V INDICATIONS: chest pain TECHNIQUE: One view of the chest was acquired. COMPARISON: [facility], CR, XR CHEST 1 VIEW, 11/18/2020, 14:26. [facility], CR, XR CHEST 1V, 03/08/2021, 16:32. FINDINGS: Surgical changes and devices: None. Lungs and pleura: Perihilar interstitial infiltrates are seen. On this semiupright portable chest examination, no large pneumothorax or large pleural effusions are seen. Mediastinum: Mediastinal contours appear normal. Heart size is mildly to moderately enlarged. Bones and chest wall: No suspicious bony lesions. Overlying soft tissues appear unremarkable. IMPRESSION: Cardiomegaly with perihilar interstitial infiltrates. CHF fluid overload with the suspected. Dictated by: Riccardo Faith M.D. on 08/21/2023 at 10:30 Approved by: Riccardo Faith M.D. on 08/21/2023 at 10:31
[2023-08-21] MEDS: dilTIAZem 5 MG/ML SDV 10 MG IV (10:49)
[2023-08-21] MEDS: SODIUM CHLORIDE 0.9% 1,000 ML 1000 ML IV (10:53)
--- NOTE | 2023-08-21 10:55 | ED.ARRPALP ---
HPI - Arrhythmia/Palpitations General Chief Complaint: Arrhythmia/Palpitations Stated Complaint: heart problems Time Seen by Provider: 08/21/23 10:44 History of Present Illness HPI narrative: Patient is a 38-year-old male history paroxysmal atrial fibrillation alcohol abuse who has been sober for 30 days presenting today with heart palpitations. He is noted to be tachycardic heart rate in the 180s he reports that he has not taken his Eliquis medication for 1 month secondary to insurance issues. He is slightly pale and diaphoretic. He has some shortness of breath. Initially did look like SVT Valsalva maneuver was attempted but unsuccessful. Heart rate did respond to Cardizem decreased from the 180s to 150 Related Data Home Medications Medication Instructions Recorded Confirmed No Known Home Medications 11/18/20 11/18/20 Allergies Allergy/AdvReac Type Severity Reaction Status Date / Time No Known Drug Allergies Allergy Verified 03/08/21 17:48 Patient History Medical History Vaping nicotine dependence, tobacco product Former cigarette smoker Patient denies medical problems Social History Smoking Status: Former smoker Smoking Status: Former smoker tobacco type: vaping alcohol intake frequency: 0-2 drinks per day Substance Use Type: does not use Exam Initial Vital Signs Initial Vital Signs: Vital Signs Pulse Rate 194 H 08/21/23 10:42 GENERAL: Slightly pale diaphoretic awake over HEENT: Head atraumatic,EOMI, pupils reactive, face symmetric, moist mucous membranes CARDIOVASCULAR: Tachycardic regular no murmurs RESPIRATORY: Breath sounds equal bilaterally, no wheezes rales or rhonchi. ABDOMEN: Soft, nontender. Normoactive bowel sounds all 4 quadrants. No guarding or rebound. EXTREMITIES: Normal range of motion, no clubbing or edema. Neurovascularly intact NEUROLOGICAL: Alert and oriented x4.Normal gait and speech. SKIN: Warm, dry, no laceration, no petechiae, no rashes or lesions. Course Orders Ordered: ED Orders 08/21/23 10:44 XR chest 1V Stat 08/21/23 10:49 BNP [NT-proBNP (BNP-Adult 18+)] Stat Complete Blood Count AUTO DIFF Stat Comprehensive Metabolic Panel Stat Lipase Stat Troponin & CK Cardiac Panel Stat 08/21/23 10:51 EKG-12 Lead Stat Acetaminophen (Acetaminophen 325 Mg Tablet) 650 mg PO Q6H [facility] Last Admin: 08/21/23 12:51 Dose: 650 mg Documented By: RB Enoxaparin Sodium (Enoxaparin 40 Mg/0.4 Ml Syringe) 40 mg SUBCUT DAILY [facility] Last Admin: 08/21/23 12:51 Dose: 40 mg Documented By: RB Sodium Chloride (Normal Saline 0.9%) 1,000 mls @ 1,000 mls/hr IV CONT [facility] Last Infusion: 08/21/23 11:54 Dose: Infused Documented By: Admin: 08/21/23 10:53 Dose: 1,000 mls/hr Documented By: RB DILTIAZEM (Diltiazem 125 Mg/125 Ml-D5w) 125 mg in 125 mls @ 5 mls/hr IV TITRATE [facility]; Protocol Last Titration: 08/21/23 13:07 Dose: 7.5 mg/hr, 7.5 mls/hr Documented By: Admin: 08/21/23 12:04 Dose: 5 mg/hr, 5 mls/hr Documented By: CTS Sodium Chloride (Normal Saline 0.9%) 1,000 mls @ 100 mls/hr IV CONT [facility] Last Infusion: 08/21/23 13:03 Dose: Infused Documented By: Admin: 08/21/23 12:52 Dose: 100 mls/hr Documented By: RB Naloxone HCl (Naloxone 0.4 Mg/Ml Vial) 0.2 mg IV Q2MIN PRN PRN Reason: Opiate Reversal Discontinued Medications Apixaban (Apixaban 5 Mg Tablet) 5 mg PO NOW ONE Stop: 08/21/23 11:48 Last Admin: 08/21/23 12:03 Dose: 5 mg Documented By: CTS Carvedilol (Carvedilol 3.125 Mg Tablet) 6.25 mg PO NOW ONE Stop: 08/21/23 12:14 Last Admin: 08/21/23 12:30 Dose: 6.25 mg Documented By: RB Diltiazem HCl (Diltiazem 5 Mg/Ml Sdv) 10 mg IV NOW ONE Stop: 08/21/23 10:45 Last Admin: 08/21/23 10:49 Dose: 10 mg Documented By: RB Diltiazem HCl (Diltiazem 5 Mg/Ml Sdv) 20 mg IV NOW ONE Stop: 08/21/23 12:06 Last Admin: 08/21/23 12:12 Dose: 15 mg Documented By: CTS Vital Signs Vital signs: Vital Signs - 8 hr 08/21/23 10:42 08/21/23 10:43 08/21/23 10:43 Temperature Pulse Rate 194 H 183 H Respiratory Rate 16 Blood Pressure 139/95 H Pulse Oximetry 99 Oxygen Delivery Method 08/21/23 10:49 08/21/23 10:54 08/21/23 11:00 Temperature 98.0 F Pulse Rate 185 H 184 H Respiratory Rate 22 Blood Pressure 139/95 H 139/95 H 127/78 Pulse Oximetry 99 Oxygen Delivery Method Room Air 08/21/23 11:00 08/21/23 11:30 08/21/23 11:45 Temperature Pulse Rate 152 H 145 H 142 H Respiratory Rate 19 12 19 Blood Pressure Pulse Oximetry 96 94 96 Oxygen Delivery Method 08/21/23 12:00 08/21/23 12:00 08/21/23 12:10 Temperature Pulse Rate 138 H Respiratory Rate 23 Blood Pressure 121/75 118/76 Pulse Oximetry 94 Oxygen Delivery Method 08/21/23 12:10 08/21/23 12:11 08/21/23 12:11 Temperature Pulse Rate 162 H 159 H Respiratory Rate 26 H 21 Blood Pressure 107/74 Pulse Oximetry 97 95 Oxygen Delivery Method 08/21/23 12:12 Temperature Pulse Rate 154 H Respiratory Rate Blood Pressure 107/75 Pulse Oximetry Oxygen Delivery Method MDM - Arrhythmia/Palpitations Lab Data 08/21/23 10:49 08/21/23 10:49 Labs: Lab Results 08/21/23 Range/Units 10:49 WBC 9.8 (4.5-11.0) X10^3/uL RBC 4.69 (4.5-5.9) X10^6/uL Hgb 15.2 (13.5-17.5) g/dL Hct 44.6 (41-53) % MCV 95.0 (80-100) fL MCH 32.5 (26-34) PG MCHC 34.1 (30-36) % RDW 13.5 (11.6-14.8) % Plt Count 325 (150-400) X10^3/uL Neut % (Auto) 68.8 (50-75) % Lymph % (Auto) 15.7 L (25-40) % [place] % (Auto) 14.2 H (3-14) % Eos % (Auto) 0.4 L (2-4) % Baso % (Auto) 0.9 (0-2) % Neut # (Auto) 6700 (7258-9559) /uL Lymph # (Auto) 1500 (8783-4187) /uL [place] # (Auto) 1400 H (0-900) /uL Eos # (Auto) 0 (0-450) /uL Baso # (Auto) 100 (0-100) /uL Sodium 133 L (137-145) mmol/L Potassium 3.7 (3.4-5.1) mmol/L Chloride 100 (98-107) mmol/L Carbon Dioxide 24 (22-32) mmol/L BUN 20 (9-20) mg/dL Creatinine 0.75 (0.66-1.25) mg/dL Estimated GFR > 60 (>60) mL/min BUN/Creatinine Ratio 26.7 H (6-22) Glucose 138 H (70-100) mg/dL Calcium 9.3 (8.4-10.2) mg/dL Total Bilirubin 1.0 (0.2-1.3) mg/dL AST 36 (17-59) IU/L ALT 58 H (<50) IU/L Alkaline Phosphatase 70 (38-126) U/L Total Creatine Kinase 89 (55-170) U/L Troponin I 0.018 (0.01-0.034) ng/mL NT-Pro-B Natriuret Pep 2640 H (<125) pg/mL Total Protein 6.8 (6.3-8.2) g/dL Albumin 3.7 (3.5-5.0) g/dL Globulin 3.1 (1.7-4.1) g/dL Albumin/Globulin Ratio 1.2 (1.0-2.8) Lipase 30 (23-300) U/L Imaging Data Chest x-ray: Radiologist's Impresson: PROCEDURE: XR CHEST 1V INDICATIONS: chest pain TECHNIQUE: One view of the chest was acquired. COMPARISON: [facility], CR, XR CHEST 1 VIEW, 11/18/2020, 14:26. [facility], CR, XR CHEST 1V, 03/08/2021, 16:32. FINDINGS: Surgical changes and devices: None. Lungs and pleura: Perihilar interstitial infiltrates are seen. On this semiupright portable chest examination, no large pneumothorax or large pleural effusions are seen. Mediastinum: Mediastinal contours appear normal. Heart size is mildly to moderately enlarged. Bones and chest wall: No suspicious bony lesions. Overlying soft tissues appear unremarkable. IMPRESSION: Cardiomegaly with perihilar interstitial infiltrates. CHF fluid overload with the suspected. Dictated by: Riccardo Faith M.D. on 08/21/2023 at 10:30 Approved by: Riccardo Faith M.D. on 08/21/2023 at 10:31 ECG Data Interpretation: Atrial fibrillation rate [address] changes similar to prior MDM Narrative Medical decision making narrative: Patient 38-year-old male presents today with atrial fibrillation. Likely secondary to noncompliant with his medications. His heart rate has been pretty fast for at least 1 month. He occasionally has some shortness breath. Initially heart rate was in the 180s close to 200 possible SVT. Attempted Valsalva maneuver but was unsuccessful. He did respond well to Cardizem. He has not hypoxic. Blood work reviewed: No anemia no leukocytosis, normal kidney function sodium 133, troponin 0.018, BNP 2640 Chest x-ray cardiomegaly with perihilar infiltrates CHF fluid overload Patient in AFib with a RVR. He has given a dose of Eliquis he responded well to diltiazem once the initial 10 mg bolus for off heart rate is increased he was given a 20 mg bolus placed on a drip heart rate improved. He was also given his home dose of Coreg and Eliquis. On exam he does not look significantly fluid overloaded no significant edema. Elevated BNP and chest x-ray suggest CHF fluid overload. Not significantly hypoxic low suspicion for pulmonary embolism does have a history of AFib. It does not appear to be an alcohol withdrawal and reports no drinking for [address] Munoz updated patient's symptoms test results and accepts patient Discharge Plan Departure Patient Disposition: Admitted As Inpatient Clinical Impression: Atrial fibrillation with rapid ventricular response, CHF (congestive heart failure) Admit Date/Time: 08/21/23 12:13 Admit Provider: Oziel Munoz
--- NOTE | 2023-08-21 11:04 | PC.NURSE ---
Addendum entered by Gabe Hutton R.N. 08/21/23 11:06: Pt states he [place] on [address] [place] and then took a taxi to the ER here. Pt's and 4month daughter Ricky are at home on [facility]. Original Note: Pt states history of being sent to [facility] and then transferred to for cardiology. Pt states fractured valve in his heart, history of eliquis use which stopped aproximately a month ago due to insurance complications. Pt was dry heaving over the weekend, denies nausea at this time. Pt is diaphoretic, weakness and SOB, dizziness with movement/exertion.
[2023-08-21 11:11] LABS: Add Manual Diff / Slide Review NO; Basophils Absolute Auto 100 /uL (0-100); Basophils Percent Auto 0.9 % (0-2); Eosinophils Absolute Auto 0 /uL (0-450); Eosinophils Percent Auto 0.4 % (2-4); Hematocrit 44.6 % (41-53); Hemoglobin 15.2 g/dL (13.5-17.5); Lymphocytes Absolute Auto 1500 /uL (1100-4500); Lymphocytes Percent Auto 15.7 % (25-40); Mean Corpuscular HGB Conc 34.1 % (30-36); Mean Corpuscular Hemoglobin 32.5 PG (26-34); Monocytes Absolute Auto 1400 /uL (0-900); Monocytes Percent Auto 14.2 % (3-14); Neutrophils Absolute Auto 6700 /uL (1500-7000); Neutrophils Percent Auto 68.8 % (50-75); Platelet Count 325 X10^3/uL (150-400); Red Blood Cell Count 4.69 X10^6/uL (4.5-5.9); Red Cell Distribution Width 13.5 % (11.6-14.8); White Blood Cell Count 9.8 X10^3/uL (4.5-11.0)
[2023-08-21 11:18] LABS: Alanine Aminotransferase 58 IU/L (<50); Albumin 3.7 g/dL (3.5-5.0); Albumin Globulin Ratio 1.2 (1.0-2.8); Alkaline Phosphatase 70 U/L (38-126); Aspartate Aminotransferase 36 IU/L (17-59); BUN Creatinine Ratio 26.7 (6-22); Blood Urea Nitrogen 20 mg/dL (9-20); Calcium 9.3 mg/dL (8.4-10.2); Carbon Dioxide 24 mmol/L (22-32); Chloride 100 mmol/L (98-107); Creatine Kinase 89 U/L (55-170); Estimated Glomerular Filt Rate > 60 mL/min (>60); Globulin 3.1 g/dL (1.7-4.1); Glucose 138 mg/dL (70-100); HEMOLYSIS < 15 (0-50); Lipase 30 U/L (23-300); Potassium 3.7 mmol/L (3.4-5.1); Sodium 133 mmol/L (137-145); Total Protein 6.8 g/dL (6.3-8.2)
[2023-08-21 11:26] LABS: NT-proBNP (BNP-Adult 18+) 2640 pg/mL (<125)
[2023-08-21 11:30] LABS: Troponin I 0.018 ng/mL (0.01-0.034)
[2023-08-21] MEDS: APIXABAN 5 MG TABLET PO (12:03)
[2023-08-21] MEDS: DILTIAZEM 125 MG/125 ML PIGGYBACK IV (12:04)
[2023-08-21] MEDS: dilTIAZem 5 MG/ML SDV 20 MG IV (12:12)
--- NOTE | 2023-08-21 12:13 | PC.NURSE ---
Pt resting in bed. states feels mild SOB. HR 155. 20mg cardizem ordered IVP followed by infusion per OCT. 10mg cardizem given IVP and BP decreased from 121/70 to 107/systolic without change in HR. Nursing jugdement to give 15mg total and start infusion to keep BP above 100/systolic.
[2023-08-21] MEDS: carvediloL 3.125 MG TABLET 6.25 MG PO (12:30)
--- NOTE | 2023-08-21 12:48 | P.HP_ITS ---
History of Present Illness History of Present Illness Date Patient Seen: 08/21/23 Time Patient Seen: 12:48 Date of Onset of Symptoms: 08/21/23 Chief complaint: heart problems Narrative: The patient is a 38 your old male with a H/O Atrial fibrillation who ran out of his medications several weeks ago. He has a H/O alcohol abuse but has been sober for 30 days. He presented with a racing heart and had no dyspnea or chest pain. He was found to be in AF with RVR and was treated with IV diltiazem and a diltiazem drip. Initially, it looked like SVT and a valsalva maneuver was tried. He has been cardioverted in the past [facility]. The patient has not been in his oral anticoagulation for approximately 1 month. He denies any alcohol intake for about a month. He was started on diltiazem in the ED with minimal response and was also given an oral dose of carvedilol. Upon arrival to the CCU he was tachycardic with rates in the 150 range and somewhat hypotensive with a systolic in the 90s. The patient was then placed on an amiodarone bolus and infusion and diltiazem was stopped owing to low blood pressure. In addition the patient became diaphoretic but was not hypoxic. At this point the decision was made to trial BiPAP and continue amiodarone in hopes of obtaining better rate control. Acute decompensation would have to be treated with acute cardioversion, this would place the patient at risk for cardioembolic events. This was all explained to the patient. If he tolerates BiPAP we will plan on using Ativan as well to help him relax. [facility] Medical History Vaping nicotine dependence, tobacco product Former cigarette smoker Patient denies medical problems Social History household members: spouse Smoking Status: Former smoker alcohol intake: former Meds Home Medications and Allergies Home Medications Medication Instructions Recorded Confirmed Type No Known Home Medications 08/21/23 08/21/23 History Allergies Allergy/AdvReac Type Severity Reaction Status Date / Time No Known Drug Allergies Allergy Verified 03/08/21 17:48 Review of Systems Review of Systems Narrative: All else reviewed and otherwise negative. Exam Vital Signs (past 8 hours): - 08/21/23 10:42 08/21/23 10:43 08/21/23 10:43 Temperature Pulse Rate 194 H 183 H Respiratory Rate 16 Blood Pressure 139/95 H Pulse Oximetry 99 Oxygen Delivery Method 08/21/23 10:49 08/21/23 10:54 08/21/23 11:00 Temperature 98.0 F Pulse Rate 185 H 184 H Respiratory Rate 22 Blood Pressure 139/95 H 139/95 H 127/78 Pulse Oximetry 99 Oxygen Delivery Method Room Air 08/21/23 11:00 08/21/23 11:30 08/21/23 11:45 Temperature Pulse Rate 152 H 145 H 142 H Respiratory Rate 19 12 19 Blood Pressure Pulse Oximetry 96 94 96 Oxygen Delivery Method 08/21/23 12:00 08/21/23 12:00 08/21/23 12:10 Temperature Pulse Rate 138 H Respiratory Rate 23 Blood Pressure 121/75 118/76 Pulse Oximetry 94 Oxygen Delivery Method 08/21/23 12:10 08/21/23 12:11 08/21/23 12:11 Temperature Pulse Rate 162 H 159 H Respiratory Rate 26 H 21 Blood Pressure 107/74 Pulse Oximetry 97 95 Oxygen Delivery Method 08/21/23 12:12 08/21/23 12:15 08/21/23 12:30 Temperature Pulse Rate 154 H 141 H 148 H Respiratory Rate 24 Blood Pressure 107/75 108/77 Pulse Oximetry 93 Oxygen Delivery Method Oxygen Delivery Method Room Air Narrative Exam Narrative: NAD , oriented and with fluent speech. Uncomfortable in appearance, diaphoretic. Normocephalic. Normal oral mucosa. EOMI, pupils symmetric Neck supple with midline trachea Lungs clear with normal effort and rate Heart is tachycardic and irregular. Abdomen soft and NT. No leg edema Joints unremarkable Skin free of rash Objective Imaging Chest x-ray: My impression: Mild pulmonary edema. Radiologist's impression: Cardiomegaly with perihilar interstitial infiltrates. CHF fluid overload with the suspected. Labs 08/21/23 10:49 08/21/23 10:49 Labs: Laboratory Results - last 24 hr 08/21/23 10:49 WBC 9.8 RBC 4.69 Hgb 15.2 Hct 44.6 MCV 95.0 MCH 32.5 MCHC 34.1 RDW 13.5 Plt Count 325 Neut % (Auto) 68.8 Lymph % (Auto) 15.7 L [place] % (Auto) 14.2 H Eos % (Auto) 0.4 L Baso % (Auto) 0.9 Neut # (Auto) 6700 Lymph # (Auto) 1500 [place] # (Auto) 1400 H Eos # (Auto) 0 Baso # (Auto) 100 Sodium 133 L Potassium 3.7 Chloride 100 Carbon Dioxide 24 BUN 20 Creatinine 0.75 Estimated GFR > 60 BUN/Creatinine Ratio 26.7 H Glucose 138 H Calcium 9.3 Total Bilirubin 1.0 AST 36 ALT 58 H Alkaline Phosphatase 70 Total Creatine Kinase 89 Troponin I 0.018 NT-Pro-B Natriuret Pep 2640 H Total Protein 6.8 Albumin 3.7 Globulin 3.1 Albumin/Globulin Ratio 1.2 Lipase 30 Assessment & Plan Assessment & Plan narrative: 1. Atrial fibrillation with RVR, POA and active. 2. Mild pulmonary edema, POA and active. 3. Mild tachycardia associated hypotension. New and active. 3. H/O alcohol use disorder now sober for 30 days, stable. PLAN: Will stop oral Coreg and diltiazem drip owing to hypotension. We will continue amiodarone infusion following the bolus for rate control. We will trial BiPAP for dyspnea and labored breathing. If he tolerates BiPAP will use Ativan for anxiety. The patient will be diuresed once he has blood pressures that are reasonable enough to tolerate diuresis. The patient denies alcohol, however a suspicion for alcohol withdrawal at this point does exist we will monitor his response to Ativan. 45 minutes of critical care time was spent with this patient who is suffering from persistent tachycardia with hypotension and difficulty breathing. His risk of adverse outcomes a significant given his acute cardiovascular decompensation. Time Spent With Patient Time with patient: 30 to 49 minutes with 50% spent counseling/coordinating care Quality VTE Deep Vein Thrombosis/Pulmonary Embolism Present on Admission: No MIPS - Admit I confirm the patient?s Advance Care Plan is present, Code status is documented, Surrogate decision maker is in patient?s record [If Yes, STOP here]: Yes MIPS - Meds 'Current medications' to include all prescriptions, [id number] products, herbals, cannabis/cannabidiol products, and vitamin/mineral/dietary (nutritional) supplements. I have utilized all available resources to obtain, update, or review the patient?s current medications. [If Yes, STOP here]: Yes
[2023-08-21] MEDS: ACETAMINOPHEN 325 MG TABLET 650 MG PO ×2 (12:51→20:08)
[2023-08-21] MEDS: ENOXAPARIN 40 MG/0.4 ML SYRINGE SUBCUT (12:51)
[2023-08-21] MEDS: SODIUM CHLORIDE 0.9% 1,000 ML 100 ML IV (12:52)
--- NOTE | 2023-08-21 13:03 | PC.NURSE ---
NS infusion at 100ml/hr stopped for BNP and fluid overload noted on CXR. HR remains in 130s. Cardizem gtt increased to 7.5mg/hr. Pt tolerating well. BP 102/80. Pt c/o back pain. MD aware. tylenol order obtained and given. Report given to Neela, MANAGER SOFTWARE.
[2023-08-21] MEDS: AMIODARONE 150 MG/100 ML PIGGYBACK 600 MG IV ×2 (13:46→18:26)
[2023-08-21] MEDS: AMIODARONE 360 MG/200 ML PIGGYBACK 33.33 MG IV (13:47)
[2023-08-21] MEDS: LORazepam 2 MG/ML INJ 1 MG IV ×2 (14:53→19:02)
[2023-08-21] MEDS: FUROSEMIDE 20 MG/2 ML VIAL IV (15:32)
--- NOTE | 2023-08-21 15:46 | PC.NURSE ---
1320 Pt arrived into 228 per stretcher from ED DX afib with rvr. Dilt drip in progress at 7.5ml/hr, NBP 90s, HR 150. Pt unable to life flat in the bed Loud crackles noted throughout lung bernal, RR 30. Spoke with MD, diltiazem changed to amiodarone, bolus then 1mg/hr. Pt diaphoretic and restless. Placed on bipap and pt immediately began to feel improved breathing. BP improved to the 120's, ativan 1mg iv given to help pt relax.
[2023-08-21] MEDS: FUROSEMIDE 40 MG/4 ML VIAL IV (17:15)
[2023-08-21] MEDS: SODIUM CHLORIDE 0.9% 250 ML 21 ML IV (17:16)
[2023-08-21] MEDS: SODIUM CHLORIDE 0.9% FLUSH 10 ML IV (17:16)
[2023-08-21 17:30] LABS: MRSA (Nasal) PCR Not Detected (Not Detect)
--- NOTE | 2023-08-21 18:39 | P.TELICUCN_ITS ---
History of Present Illness Consult details IF CAMERA ACTIVATED, patient seen via real-time interactive audiovisual communication: Camera not activated Chief complaint: heart problems Reason for consult: Afib with RVR Requesting provider: Oziel Munoz Consent obtained for tele-special education professional care: Yes Patient Location: ICU Provider location (State): [place] Other participants/roles: spoke with hospitalist, and bedside RN by phone. Narrative: 38 yo M with a history of Atrial fibrillation s/p ablation. On coreg and eliquis. H/o of ETOH abuse, states has been sober x 30 DAYS. Has not taken medications a month and has been off eliquis. He presented feeling weak and SOB and was found to be in AF with RVR with rates in 190's He was initially given his home dose of coreg in ED and trialed on diltiazem but became hypotensive and was switched to amiodarone. Given a bolus of 150 mg amio and started on amio gtt lytes WNL wbc WNL bnp 2600 trop WNL CXR showed pulm edema, enlarged heart He was started on bipap, as he was noted to be diaphoretic with increased WOB. bipap improved his WOB as well as his blood pressure. He was given bolus of lasix and started on lasxi gtt PFSH Medical History Vaping nicotine dependence, tobacco product Former cigarette smoker Patient denies medical problems Social History household members: spouse Smoking Status: Former smoker alcohol intake: former Current Medications Current Medications Medications: Home Medications No Known Home Medications 08/21/23 [History Confirmed 08/21/23] Visit Medications (administered) Generic Name Dose Route Start Last Admin Trade Name Freq PRN Reason Stop Dose Admin Acetaminophen 650 mg 08/21/23 12:45 08/21/23 12:51 Acetaminophen 325 Mg Tablet PO 650 mg Q6H [place] Administration Enoxaparin Sodium 40 mg 08/21/23 12:45 08/21/23 12:51 Enoxaparin 40 Mg/0.4 Ml Syringe SUBCUT 40 mg DAILY [place] Administration DILTIAZEM 125 mg in 125 mls @ 5 mls/hr 08/21/23 12:00 08/21/23 14:00 Diltiazem 125 Mg/125 Ml-D5w IV 0 mg/hr TITRATE [place] 0 mls/hr Titration Protocol 5 MG/HR Amiodarone HCl/Dextrose 360 mg in 200 mls @ 33.333 mls/hr 08/21/23 13:36 08/21/23 13:47 Nexterone IV 08/21/23 19:35 33.33 mls/hr NOW ONE 33.33 mls/hr Administration Protocol Sodium Chloride 250 mls @ 21 mls/hr 08/21/23 15:34 08/21/23 17:16 Normal Saline 0.9% IV 21 mls/hr Q24H PRN Administration Flush Lorazepam 1 mg 08/21/23 14:23 08/21/23 14:53 Lorazepam 2 Mg/Ml Inj IV 1 mg Q4HR PRN Administration Anxiety Sodium Chloride 10 ml 08/21/23 15:35 08/21/23 17:16 Sodium Chloride 0.9% Flush IV 10 ml PRN PRN Administration Flush Exam Vital Signs (past 8 hours): - 08/21/23 10:42 08/21/23 10:43 08/21/23 10:43 Temperature Pulse Rate 194 H 183 H Respiratory Rate 16 Blood Pressure 139/95 H Pulse Oximetry 99 Oxygen Delivery Method Oxygen Flow Rate Fraction of Inspired Oxygen 08/21/23 10:49 08/21/23 10:54 08/21/23 11:00 Temperature 98.0 F Pulse Rate 185 H 184 H Respiratory Rate 22 Blood Pressure 139/95 H 139/95 H 127/78 Pulse Oximetry 99 Oxygen Delivery Method Room Air Oxygen Flow Rate Fraction of Inspired Oxygen 08/21/23 11:00 08/21/23 11:30 08/21/23 11:45 Temperature Pulse Rate 152 H 145 H 142 H Respiratory Rate 19 12 19 Blood Pressure Pulse Oximetry 96 94 96 Oxygen Delivery Method Oxygen Flow Rate Fraction of Inspired Oxygen 08/21/23 12:00 08/21/23 12:00 08/21/23 12:10 Temperature Pulse Rate 138 H Respiratory Rate 23 Blood Pressure 121/75 118/76 Pulse Oximetry 94 Oxygen Delivery Method Oxygen Flow Rate Fraction of Inspired Oxygen 08/21/23 12:10 08/21/23 12:11 08/21/23 12:11 Temperature Pulse Rate 162 H 159 H Respiratory Rate 26 H 21 Blood Pressure 107/74 Pulse Oximetry 97 95 Oxygen Delivery Method Oxygen Flow Rate Fraction of Inspired Oxygen 08/21/23 12:12 08/21/23 12:15 08/21/23 12:19 Temperature Pulse Rate 154 H 141 H Respiratory Rate 24 Blood Pressure 107/75 Pulse Oximetry 93 Oxygen Delivery Method BiPAP Oxygen Flow Rate Fraction of Inspired Oxygen 08/21/23 12:30 08/21/23 12:30 08/21/23 12:30 Temperature Pulse Rate 148 H 137 H Respiratory Rate 32 H Blood Pressure 108/77 108/77 Pulse Oximetry 93 Oxygen Delivery Method Oxygen Flow Rate Fraction of Inspired Oxygen 08/21/23 12:42 08/21/23 12:42 08/21/23 12:45 Temperature 97.7 F Pulse Rate 139 H 137 H Respiratory Rate 29 H 28 H Blood Pressure 90/58 L Pulse Oximetry 98 100 95 Oxygen Delivery Method Nasal Cannula BiPAP Oxygen Flow Rate 4 4 Fraction of Inspired Oxygen 08/21/23 13:00 08/21/23 13:00 08/21/23 13:18 Temperature Pulse Rate 141 H 155 H Respiratory Rate 27 H 19 Blood Pressure 102/80 Pulse Oximetry 94 Oxygen Delivery Method Oxygen Flow Rate Fraction of Inspired Oxygen 08/21/23 13:22 08/21/23 13:22 08/21/23 14:00 Temperature Pulse Rate 141 H 151 H Respiratory Rate 19 27 H Blood Pressure 90/58 L Pulse Oximetry 97 98 Oxygen Delivery Method Oxygen Flow Rate Fraction of Inspired Oxygen 08/21/23 14:00 08/21/23 14:15 08/21/23 14:15 Temperature Pulse Rate 135 H Respiratory Rate 36 H Blood Pressure 93/73 96/74 Pulse Oximetry 93 Oxygen Delivery Method Oxygen Flow Rate Fraction of Inspired Oxygen 08/21/23 14:30 08/21/23 14:33 08/21/23 14:36 Temperature Pulse Rate 138 H 141 H Respiratory Rate 31 H 26 H Blood Pressure 96/74 Pulse Oximetry 100 100 Oxygen Delivery Method Oxygen Flow Rate Fraction of Inspired Oxygen 08/21/23 14:36 08/21/23 15:00 08/21/23 15:10 Temperature Pulse Rate 139 H Respiratory Rate 26 H Blood Pressure 127/62 108/65 Pulse Oximetry 100 Oxygen Delivery Method Oxygen Flow Rate Fraction of Inspired Oxygen 08/21/23 15:10 08/21/23 15:30 08/21/23 15:35 Temperature Pulse Rate 142 H 144 H Respiratory Rate 29 H 32 H Blood Pressure 137/97 H Pulse Oximetry 99 99 Oxygen Delivery Method Oxygen Flow Rate Fraction of Inspired Oxygen 08/21/23 15:35 08/21/23 15:41 08/21/23 16:00 Temperature Pulse Rate 146 H 143 H Respiratory Rate 34 H 31 H Blood Pressure Pulse Oximetry 98 98 Oxygen Delivery Method BiPAP Oxygen Flow Rate Fraction of Inspired Oxygen 08/21/23 16:01 08/21/23 16:01 08/21/23 16:42 Temperature Pulse Rate 145 H 145 H Respiratory Rate 29 H 36 H Blood Pressure 137/65 98/60 Pulse Oximetry 98 100 Oxygen Delivery Method Oxygen Flow Rate Fraction of Inspired Oxygen 30 08/21/23 16:42 08/21/23 17:00 08/21/23 17:12 Temperature Pulse Rate 147 H 156 H Respiratory Rate 31 H 27 H Blood Pressure Pulse Oximetry 100 100 100 Oxygen Delivery Method BiPAP Nasal Cannula Oxygen Flow Rate 4 Fraction of Inspired Oxygen 08/21/23 17:15 08/21/23 17:15 08/21/23 18:00 Temperature Pulse Rate 148 H 154 H Respiratory Rate 28 H 30 H Blood Pressure 109/59 L Pulse Oximetry 99 99 Oxygen Delivery Method Oxygen Flow Rate Fraction of Inspired Oxygen 08/21/23 18:17 Temperature 97.9 F Pulse Rate Respiratory Rate Blood Pressure Pulse Oximetry Oxygen Delivery Method Oxygen Flow Rate Fraction of Inspired Oxygen Fraction of Inspired Oxygen 30 Oxygen Delivery Method Nasal Cannula Oxygen Flow Rate 4 Narrative Exam Narrative: exam not done at time of note, as patient in restroom Objective Imaging Chest x-ray: My impression: perihilar edema, enlarged cardiac sillhouette Labs 08/21/23 10:49 08/21/23 19:08 Labs: Laboratory Results - last 24 hr 08/21/23 08/21/23 10:49 14:01 WBC 9.8 RBC 4.69 Hgb 15.2 Hct 44.6 MCV 95.0 MCH 32.5 MCHC 34.1 RDW 13.5 Plt Count 325 Neut % (Auto) 68.8 Lymph % (Auto) 15.7 L [place] % (Auto) 14.2 H Eos % (Auto) 0.4 L Baso % (Auto) 0.9 Neut # (Auto) 6700 Lymph # (Auto) 1500 [place] # (Auto) 1400 H Eos # (Auto) 0 Baso # (Auto) 100 Sodium 133 L Potassium 3.7 Chloride 100 Carbon Dioxide 24 BUN 20 Creatinine 0.75 Estimated GFR > 60 BUN/Creatinine Ratio 26.7 H Glucose 138 H Calcium 9.3 Total Bilirubin 1.0 AST 36 ALT 58 H Alkaline Phosphatase 70 Total Creatine Kinase 89 Troponin I 0.018 NT-Pro-B Natriuret Pep 2640 H Total Protein 6.8 Albumin 3.7 Globulin 3.1 Albumin/Globulin Ratio 1.2 Lipase 30 Nasal Screen MRSA (PCR) Not detected Assessment & Plan Assessment and plan (1) CHF (congestive heart failure): Status: Acute (2) Atrial fibrillation with rapid ventricular response: Status: Acute Plan Afib with RVR, likely from med non adherance New congestive heart failure, likely tachycardia induced. At risk for thromboembolic event if cardioverted since he has been off eliquis for a month Would recommend he be transferred to icu that has cardiology services, where he can have a CORA and cardioversion- For now, continue amiodarone, as his BP did not tolerate dilt and coreg, which is concerning for depressed EF D/w hospitalist, can give another bolus of amio tonight. if BP is improved, and HR still uncontrolled, may trial small doses of metoprolol continue diuresis, trend Cr, BNP painting placed for accurate I/O Keep K >4, MG >2 Less likely infectious related, follow up blood cultures check procalcitonin r/o covid, flu He has been anxious and was given ativan/valium to tolerate the bipap- since he is in icu will trial low dose precedex as it may also have a favorable effect on HR COVID-19 COVID-19 status: Result pending (test ordered ) Time Spent With Patient Time with patient: 50 to 69 minutes with 50% spent counseling/coordinating care
[2023-08-21] MEDS: AMIODARONE 360 MG/200 ML PIGGYBACK 16.7 MG IV (19:02)
[2023-08-21] MEDS: ONDANSETRON 4 MG/2 ML INJ IV (19:03)
[2023-08-21 19:31] LABS: BUN Creatinine Ratio 22.3 (6-22); Blood Urea Nitrogen 23 mg/dL (9-20); Calcium 8.7 mg/dL (8.4-10.2); Carbon Dioxide 20 mmol/L (22-32); Chloride 102 mmol/L (98-107); Estimated Glomerular Filt Rate > 60 mL/min (>60); Glucose 189 mg/dL (70-100); HEMOLYSIS < 15 (0-50); Magnesium 1.7 mg/dL (1.6-2.3); Potassium 4.1 mmol/L (3.4-5.1); Sodium 132 mmol/L (137-145)
[2023-08-21 19:42] LABS: Troponin I 0.036 ng/mL (0.01-0.034)
[2023-08-21] MEDS: dexmedeTOMIDine in 0.9 % NaCL 400 MCG/100 ML PLAST..BAG IV (19:51)
[2023-08-21] MEDS: FUROSEMIDE 100 MG in SODIUM CHLORIDE 0.9% 50 ML IV (20:05)
[2023-08-21] MEDS: LIDOCAINE 2% (GLYDO) 6 ML GEL TOP (20:30)
[2023-08-21] MEDS: DIGOXIN 500 MCG/2 ML AMPUL 250 MCG IV (21:23)
[2023-08-21] MEDS: METOPROLOL TARTRATE 5 MG/5 ML INJ IV (22:01)
[2023-08-21 22:31] LABS: Influenza A - CEPHEID Flu A NEGATIVE (NEGATIVE); Influenza B - CEPHEID Flu B NEGATIVE (NEGATIVE)
[2023-08-21 22:40] LABS: COVID-19 CEPHEID 4-PLEX PCR Negative (Negative)
--- NOTE | 2023-08-21 22:47 | PC.NURSE ---
pt unable to get comfortable in bed; up to recliner; pt reports feeling better being upright; fan on, call light in reach
--- NOTE | 2023-08-21 23:58 | PM.EVENT ---
Event Note Date Patient Seen: 08/21/23 Time Patient Seen: 23:58 Event Note (Rapid Response, Code, or fall): Notified by RN patient is not making urine while on lasix gtt. On my camera assessment patient is sitting up and mildly tachypnea. Currently on 3 liters NC w/ SpO2 96%. Recommend against endotracheal intubation at this time. Will increase lasix gtt to 10 mg/hr and added metolazone 5 mg PO once. Agree with transfer to tertiary care for cardiology evaluation for CORA w/ cardioversion and possible renal replacement therapy to seek preload reduction. D/w bedside RN at bedside. Answered all questions.
[2023-08-22] VITALS (36 sets, daily range): BP systolic 69–122; BP diastolic 49–68; PULSE 57–139; RESP 18–31; O2SAT 87–100
[2023-08-22] MEDS: MORPHINE 2 MG/ML INJ 1 MG IV (00:06)
[2023-08-22] MEDS: metOLazone 2.5 MG TABLET 5 MG PO (00:08)
--- NOTE | 2023-08-22 00:11 | PC.NURSE ---
2350--Dr Nath monitored into room; spoke w/ pt; status report given re: bladder scan--14ml, meds given, ordering labs; orders rec'd; increased Lasix drip to 10mg/hr; morphine 1mg iv given and metolazone 5mg po given; pt remains in recliner, call light in reach
[2023-08-22 00:45] LABS: HCO3 ABG 19 mmol/L (23-27); PCO2 ABG 36.6 mmHg (35-45); PO2 ABG 78 mmHg (80-100); pH ABG 7.32 (7.35-7.45)
[2023-08-22 00:46] LABS: Fractionated Inspired Oxygen 32; Oxygen Saturation ABG 95 % (95-100); TCO2 ABG 20 mmol/L (23-27)
[2023-08-22 00:49] LABS: Add Manual Diff / Slide Review NO; Basophils Absolute Auto 0 /uL (0-100); Basophils Percent Auto 0.2 % (0-2); Eosinophils Absolute Auto 0 /uL (0-450); Hemoglobin 14.8 g/dL (13.5-17.5); Lymphocytes Absolute Auto 1300 /uL (1100-4500); Lymphocytes Percent Auto 11.3 % (25-40); Mean Corpuscular HGB Conc 33.7 % (30-36); Mean Corpuscular Hemoglobin 32.5 PG (26-34); Mean Corpuscular Volume 96.3 fL (80-100); Monocytes Absolute Auto 1300 /uL (0-900); Monocytes Percent Auto 10.8 % (3-14); Neutrophils Absolute Auto 9200 /uL (1500-7000); Neutrophils Percent Auto 77.7 % (50-75); Platelet Count 297 X10^3/uL (150-400); Red Blood Cell Count 4.57 X10^6/uL (4.5-5.9); Red Cell Distribution Width 13.9 % (11.6-14.8); White Blood Cell Count 11.9 X10^3/uL (4.5-11.0)
[2023-08-22 01:05] LABS: Lactate (Lactic Acid) 2.3 mmol/L (0.7-2.1)
[2023-08-22 01:06] LABS: Albumin 3.3 g/dL (3.5-5.0); Blood Urea Nitrogen 30 mg/dL (9-20); Calcium 8.7 mg/dL (8.4-10.2); Carbon Dioxide 17 mmol/L (22-32); Chloride 99 mmol/L (98-107); Estimated Glomerular Filt Rate > 60 mL/min (>60); Glucose 156 mg/dL (70-100); HEMOLYSIS < 15 (0-50); Magnesium 1.7 mg/dL (1.6-2.3); Phosphorous 7.2 mg/dL (2.5-4.5); Potassium 4.4 mmol/L (3.4-5.1); Sodium 129 mmol/L (137-145)
[2023-08-22 02:32] LABS: Reflexed Lactate in 2 Hours Y
[2023-08-22 03:59] LABS: Lactate 2HR (Lactic Acid Rflx) 1.4 mmol/L (0.7-2.1)
[2023-08-22 04:11] LABS: Troponin I 0.034 ng/mL (0.01-0.034)
[2023-08-22 04:17] LABS: Procalcitonin 0.24 ng/mL (<0.5)
--- NOTE | 2023-08-22 04:35 | PC.NURSE ---
0430--informed pt of pending transfer; pt in agreement; pt voided 175ml per urinal
[2023-08-22 07:06] LABS: Allen Test for ABG Passed? Yes, Passed; Blood Gas Collection Site Left Radial
[2023-08-22] MEDS: AMIODARONE 180 MG/100 ML PIGGYBACK 16.667 MG IV (07:06)
--- NOTE | 2023-08-22 07:09 | PM.DS.1 ---
History of Present Illness History of Present Illness Chief complaint: heart problems Narrative: The patient is a 38 your old male with a H/O Atrial fibrillation who ran out of his medications several weeks ago. He has a H/O alcohol abuse but has been sober for 30 days. He presented with a racing heart and had no dyspnea or chest pain. He was found to be in AF with RVR and was treated with IV diltiazem and a diltiazem drip. Initially, it looked like SVT and a valsalva maneuver was tried. He has been cardioverted in the past [facility]. The patient has not been in his oral anticoagulation for approximately 1 month. He denies any alcohol intake for about a month. He was started on diltiazem in the ED with minimal response and was also given an oral dose of carvedilol. Upon arrival to the CCU he was tachycardic with rates in the 150 range and somewhat hypotensive with a systolic in the 90s. The patient was then placed on an amiodarone bolus and infusion and diltiazem was stopped owing to low blood pressure. In addition the patient became diaphoretic but was not hypoxic. At this point the decision was made to trial BiPAP and continue amiodarone in hopes of obtaining better rate control. Acute decompensation would have to be treated with acute cardioversion, this would place the patient at risk for cardioembolic events. This was all explained to the patient. If he tolerates BiPAP we will plan on using Ativan as well to help him relax. Discharge Providers Provider Date of admission: 08/21/23 12:13 Discharge Date: 08/22/23 Consults: None Discharge provider: Oziel Munoz MD Summary Hospital Course Discharge Diagnosis: 1. Atrial fibrillation with rapid ventricular response. 2. Acute hypoxic respiratory failure. 3. Acute pulmonary edema secondary to cardiac dysfunction, echo not performed and degree of cardiac dysfunction unknown at time of discharge. 4. Hypervolemic hyponatremia. 5. History of alcohol abuse, none in the last month. Hospital Course: The patient was admitted for acute atrial fibrillation with rapid ventricular response. He also had acute hypoxic respiratory failure. The patient had been off from anticoagulation and rate control medications for about 1 month. The patient did not tolerate or improve with a diltiazem drip having persistent tachycardia and hypotension. An amiodarone bolus and drip were initiated. The patient required BiPAP for acute dyspnea. The patient was also refractory to 2 doses of Lasix, 20 mg IV and then 40 mg IV. The patient was placed on a Lasix drip on the evening of his admission. Because of persistent tachycardia despite amiodarone a transfer was initiated for transesophageal echo and cardioversion. The patient was accepted at [facility] and is being transported there at about 7:30 a.m. on August 22. The patient had stable vital signs at the time of transfer, and was off BiPAP and oxygen and speaking comfortably. Status at Discharge Cognitive/behavioral status at discharge: oriented Functional status at discharge: independent ambulation Overall status at discharge: patient is back to baseline Time Spent with Patient Time spent: Greater than 30 minutes Exam Vital Signs (past 8 hours): - 08/21/23 23:36 08/21/23 23:59 08/21/23 23:59 Pulse Rate 138 H Respiratory Rate 28 H Blood Pressure 90/64 Pulse Oximetry 96 99 Oxygen Delivery Method Nasal Cannula Oxygen Flow Rate 3 08/22/23 00:02 08/22/23 00:02 08/22/23 00:16 Pulse Rate 139 H Respiratory Rate 31 H Blood Pressure 92/54 L 93/53 L Pulse Oximetry 99 Oxygen Delivery Method Oxygen Flow Rate 08/22/23 00:16 08/22/23 00:30 08/22/23 00:30 Pulse Rate 132 H 133 H Respiratory Rate 30 H 29 H Blood Pressure 77/55 L Pulse Oximetry 96 95 Oxygen Delivery Method Oxygen Flow Rate 08/22/23 00:52 08/22/23 00:52 08/22/23 01:27 Pulse Rate 130 H Respiratory Rate 20 Blood Pressure 99/64 103/52 L Pulse Oximetry 96 Oxygen Delivery Method Oxygen Flow Rate 08/22/23 01:27 08/22/23 01:30 08/22/23 01:30 Pulse Rate 126 H 129 H Respiratory Rate 26 H 29 H Blood Pressure 102/64 Pulse Oximetry 98 96 Oxygen Delivery Method Oxygen Flow Rate 08/22/23 01:33 08/22/23 02:01 08/22/23 02:01 Pulse Rate 129 H 120 H Respiratory Rate 25 H 24 Blood Pressure 88/50 L Pulse Oximetry 92 93 Oxygen Delivery Method Oxygen Flow Rate 08/22/23 02:02 08/22/23 02:15 08/22/23 02:15 Pulse Rate 123 H 127 H Respiratory Rate 20 22 Blood Pressure 85/64 L Pulse Oximetry 93 87 L Oxygen Delivery Method Oxygen Flow Rate 08/22/23 02:30 08/22/23 02:30 08/22/23 02:45 Pulse Rate 127 H Respiratory Rate 21 Blood Pressure 90/65 96/57 L Pulse Oximetry 89 L Oxygen Delivery Method Oxygen Flow Rate 08/22/23 02:45 08/22/23 03:00 08/22/23 03:00 Pulse Rate 113 H 121 H Respiratory Rate 18 18 Blood Pressure 89/50 L Pulse Oximetry 96 96 Oxygen Delivery Method Oxygen Flow Rate 08/22/23 03:00 08/22/23 03:03 08/22/23 03:15 Pulse Rate 120 H Respiratory Rate 23 Blood Pressure 83/55 L Pulse Oximetry 98 Oxygen Delivery Method Nasal Cannula Oxygen Flow Rate 08/22/23 03:15 08/22/23 03:30 08/22/23 03:30 Pulse Rate 125 H 124 H Respiratory Rate 22 26 H Blood Pressure 80/59 L Pulse Oximetry 96 93 Oxygen Delivery Method Oxygen Flow Rate 08/22/23 04:00 08/22/23 04:02 08/22/23 04:02 Pulse Rate 119 H Respiratory Rate 23 Blood Pressure 87/66 L Pulse Oximetry 98 99 Oxygen Delivery Method Nasal Cannula Oxygen Flow Rate 2 08/22/23 04:25 08/22/23 04:25 08/22/23 04:30 Pulse Rate 128 H Respiratory Rate 27 H Blood Pressure 104/58 L 99/58 L Pulse Oximetry 95 Oxygen Delivery Method Oxygen Flow Rate 08/22/23 04:30 08/22/23 04:45 08/22/23 04:45 Pulse Rate 132 H 128 H Respiratory Rate 29 H 25 H Blood Pressure 95/66 Pulse Oximetry 100 97 Oxygen Delivery Method Oxygen Flow Rate 08/22/23 04:55 08/22/23 05:01 08/22/23 05:01 Pulse Rate 122 H 125 H Respiratory Rate 24 24 Blood Pressure 76/57 L Pulse Oximetry 100 99 Oxygen Delivery Method Oxygen Flow Rate 08/22/23 05:03 08/22/23 05:10 08/22/23 05:10 Pulse Rate 127 H 127 H Respiratory Rate 18 20 Blood Pressure 85/59 L Pulse Oximetry 100 97 Oxygen Delivery Method Oxygen Flow Rate 08/22/23 05:27 08/22/23 05:27 08/22/23 05:30 Pulse Rate 128 H Respiratory Rate 26 H Blood Pressure 85/58 L 95/68 Pulse Oximetry 98 Oxygen Delivery Method Oxygen Flow Rate 08/22/23 05:30 08/22/23 05:45 08/22/23 05:45 Pulse Rate 131 H 129 H Respiratory Rate 26 H 26 H Blood Pressure 77/61 L Pulse Oximetry 96 98 Oxygen Delivery Method Oxygen Flow Rate 08/22/23 05:50 08/22/23 05:50 08/22/23 06:09 Pulse Rate 130 H 126 H Respiratory Rate 26 H 23 Blood Pressure 83/63 L Pulse Oximetry 100 98 Oxygen Delivery Method Oxygen Flow Rate 08/22/23 06:09 08/22/23 06:15 08/22/23 06:15 Pulse Rate 130 H Respiratory Rate 31 H Blood Pressure 76/56 L 69/49 L Pulse Oximetry 100 Oxygen Delivery Method Oxygen Flow Rate 08/22/23 06:21 08/22/23 06:21 08/22/23 06:33 Pulse Rate 126 H Respiratory Rate 23 Blood Pressure 95/57 L 71/56 L Pulse Oximetry 99 Oxygen Delivery Method Oxygen Flow Rate 08/22/23 06:33 08/22/23 06:41 08/22/23 06:41 Pulse Rate 127 H 127 H Respiratory Rate 27 H 27 H Blood Pressure 85/67 L Pulse Oximetry 100 95 Oxygen Delivery Method Oxygen Flow Rate Fraction of Inspired Oxygen 30 Oxygen Delivery Method Nasal Cannula Oxygen Flow Rate 2 Narrative Exam Narrative: No acute distress Speaking comfortably Off oxygen Breathing at a normal rate and with normal effort. Has no peripheral edema No skin rash or lesions Is alert and oriented. Objective ECG Impression: Atrial fibrillation with rapid ventricular response. Imaging Chest x-ray: My impression: Pulmonary edema Radiologist's impression: Pulmonary edema Labs 08/22/23 00:36 08/22/23 00:36 Labs: Laboratory Results - last 24 hr 08/21/23 08/21/23 08/21/23 10:49 14:01 19:08 WBC 9.8 RBC 4.69 Hgb 15.2 Hct 44.6 MCV 95.0 MCH 32.5 MCHC 34.1 RDW 13.5 Plt Count 325 Neut % (Auto) 68.8 Lymph % (Auto) 15.7 L [place] % (Auto) 14.2 H Eos % (Auto) 0.4 L Baso % (Auto) 0.9 Neut # (Auto) 6700 Lymph # (Auto) 1500 [place] # (Auto) 1400 H Eos # (Auto) 0 Baso # (Auto) 100 ABG Sample Site ABG pH ABG pCO2 ABG pO2 ABG HCO3 ABG Total CO2 ABG O2 Saturation ABG Base Excess FiO2 Sodium 133 L 132 L Potassium 3.7 4.1 Chloride 100 102 Carbon Dioxide 24 20 L BUN 20 23 H Creatinine 0.75 1.03 Estimated GFR > 60 > 60 BUN/Creatinine Ratio 26.7 H 22.3 H Glucose 138 H 189 H Lactate Calcium 9.3 8.7 Phosphorus Magnesium 1.7 Total Bilirubin 1.0 AST 36 ALT 58 H Alkaline Phosphatase 70 Total Creatine Kinase 89 Troponin I 0.018 0.036 H NT-Pro-B Natriuret Pep 2640 H Total Protein 6.8 Albumin 3.7 Globulin 3.1 Albumin/Globulin Ratio 1.2 Lipase 30 Procalcitonin Nasal Screen MRSA (PCR) Not detected SARS-CoV-2 (PCR) Influenza A (RT-PCR) Influenza B (RT-PCR) 08/21/23 08/21/23 08/22/23 20:14 23:58 00:36 WBC 11.9 H RBC 4.57 Hgb 14.8 Hct 44.0 MCV 96.3 MCH 32.5 MCHC 33.7 RDW 13.9 Plt Count 297 Neut % (Auto) 77.7 H Lymph % (Auto) 11.3 L [place] % (Auto) 10.8 Eos % (Auto) 0.0 L Baso % (Auto) 0.2 Neut # (Auto) 9200 H Lymph # (Auto) 1300 [place] # (Auto) 1300 H Eos # (Auto) 0 Baso # (Auto) 0 ABG Sample Site Left radial ABG pH 7.32 L ABG pCO2 36.6 ABG pO2 78 L ABG HCO3 19 L ABG Total CO2 20 L ABG O2 Saturation 95 ABG Base Excess -7.0 L FiO2 32 Sodium 129 L Potassium 4.4 Chloride 99 Carbon Dioxide 17 L BUN 30 H Creatinine 1.50 H Estimated GFR > 60 BUN/Creatinine Ratio 20.0 Glucose 156 H Lactate 2.3 H Calcium 8.7 Phosphorus 7.2 H Magnesium 1.7 Total Bilirubin AST ALT Alkaline Phosphatase Total Creatine Kinase Troponin I 0.050 H NT-Pro-B Natriuret Pep Total Protein Albumin 3.3 L Globulin Albumin/Globulin Ratio Lipase Procalcitonin Nasal Screen MRSA (PCR) SARS-CoV-2 (PCR) Negative Influenza A (RT-PCR) Flu a negative Influenza B (RT-PCR) Flu b negative 08/22/23 08/22/23 03:30 03:38 WBC RBC Hgb Hct MCV MCH MCHC RDW Plt Count Neut % (Auto) Lymph % (Auto) [place] % (Auto) Eos % (Auto) Baso % (Auto) Neut # (Auto) Lymph # (Auto) [place] # (Auto) Eos # (Auto) Baso # (Auto) ABG Sample Site ABG pH ABG pCO2 ABG pO2 ABG HCO3 ABG Total CO2 ABG O2 Saturation ABG Base Excess FiO2 Sodium Potassium Chloride Carbon Dioxide BUN Creatinine Estimated GFR BUN/Creatinine Ratio Glucose Lactate 1.4 Calcium Phosphorus Magnesium Total Bilirubin AST ALT Alkaline Phosphatase Total Creatine Kinase Troponin I 0.034 NT-Pro-B Natriuret Pep Total Protein Albumin Globulin Albumin/Globulin Ratio Lipase Procalcitonin 0.24 Nasal Screen MRSA (PCR) SARS-CoV-2 (PCR) Influenza A (RT-PCR) Influenza B (RT-PCR) [facility] Medical History Vaping nicotine dependence, tobacco product Former cigarette smoker Patient denies medical problems Social History household members: spouse Smoking Status: Former smoker alcohol intake: former Discharge Assessment & Plan Assessment and Plan Assessment: 1. Atrial fibrillation with rapid ventricular response. 2. Acute hypoxic respiratory failure. 3. Acute pulmonary edema secondary to cardiac dysfunction, echo not performed and degree of cardiac dysfunction unknown at time of discharge. 4. Hypervolemic hyponatremia. 5. History of alcohol abuse, none in the last month. Plan of Treatment: The plan is to transfer to [facility] by ALS ambulance for persistent tachycardia refractory to amiodarone for transesophageal echo and cardioversion. The patient is stable at the time of transfer. Discharge Plan Discharge Plan Patient Disposition: [facility] Other facility: [facility] Under care of provider: Adele Diet/Activity/Treatments Diet: Nothing by Mouth Quality VTE Deep Vein Thrombosis/Pulmonary Embolism Present on Admission: No MIPS - DC The patient has a history of heart transplant or Left Ventricular Assist Device (LVAD). If yes, STOP here.: No The patient has current or prior documentation of left ventricular ejection fraction (LVEF) less than or equal to 40%, or moderate or severely depressed left ventricular systolic function.: No
[2023-08-22] MEDS: LORazepam 1 MG TABLET PO (07:10)
--- NOTE | 2023-08-22 07:28 | PC.NURSE ---
0645--b/p 80s systolic; dr Myers notified; lasix drip stopped; EMS here to transport pt
--- NOTE | 2023-08-22 07:32 | PC.NURSE ---
0716--pt transferred to [facility] via EMS; ativan 1mg po given just prior to transport; s/p 122 prior to transport; pt reports that he notified of transfer
--- NOTE | 2023-08-22 07:53 | CM.DANOTE ---
Brief DCP Assessment Note Pt is a 38yo M here following afib/CHF. Pt was transferred to higher level of care early this morning. PCP none listed Payer [employer] and self pay [employer] reviewed EMR. Pt transferred via BLS around 15. CM team will continue to follow as needed. CARRIE Diamond Discharge Planning/Care Management CM Discharge Assessment Start: 08/22/23 07:52 Freq: Status: Discharge Protocol: Document 08/22/23 07:52 (Rec: 08/22/23 07:53 [id number]) Discharge Planning Assessment Assigned [employer] CARRIE Sierra DPOA/Assigned Designee Name Joanne (mother) Contact Information [phone] Advance Directives? No History Provided By Medical Record Prior Living Arrangements House Household Members spouse Comment pt transfered to higher level of care Discharge Plan Transfer to Higher Level of Care Transportation Arrangement BLS Referrals Initiated None needed Whiteboard Updated in Patient Room with No name and ext. # of [employer] Review Status In Process Next Review Type Continued Stay Review
== END 2023-08-22 07:16 | disposition short-term general hospital (02) | DRG 308 ==
LOC: ED 11:22 → AC 12:14 → ICU 13:17
PROVIDERS: Anesthesiology Critical Care Medicine; Internal Medicine Pulmonary Disease; Admitting Provider Hospitalist; Emergency Provider Emergency Medicine; Referring Provider Emergency Medicine; Visit Provider Hospitalist
DX: I48.91 Unspecified atrial fibrillation (principal); J81.0 Acute pulmonary edema; J96.01 Acute respiratory failure with hypoxia; E87.1 Hypo-osmolality and hyponatremia; F10.91 Alcohol use, unspecified, in remission; I51.89 Other ill-defined heart diseases; Z87.891 Personal history of nicotine dependence
CPT/HCPCS: 36415; 36600; 71045; 80048; 80053; 80069; 82550; 82805; 83605; 83690; 83735; 83880; 84145; 84484; 85025; 87635; 87797; 93005; 94660; 96365; 96372; 96376; 99284; C9803; J0282; J1160; J1650; J1940; J2060; J2270; J2405

== ENCOUNTER → 2023-11-01 13:38 | Outpatient (CLI) | payer OTHER, MEDICAID, SELFPAY ==
[2023-08-21 12:19] VITALS: BMI 24.9
[2023-08-21 14:33] VITALS: PULSE 141; RESP 28; O2SAT 100
[2023-11-01 15:14] LABS: BUN Creatinine Ratio 20.9 (6-22); Blood Urea Nitrogen 19 mg/dL (9-20); Calcium 8.5 mg/dL (8.4-10.2); Carbon Dioxide 30 mmol/L (22-32); Chloride 104 mmol/L (98-107); Estimated Glomerular Filt Rate > 60 mL/min (>60); Glucose 98 mg/dL (70-100); HEMOLYSIS 17 (0-50); Potassium 4.4 mmol/L (3.4-5.1); Sodium 139 mmol/L (137-145)
== END ==
PROVIDERS: Referring Provider Internal Medicine Cardiovascular Disease; Visit Provider Internal Medicine Cardiovascular Disease
DX: I50.82 Biventricular heart failure (principal); E78.2 Mixed hyperlipidemia; I10 Essential (primary) hypertension; I50.20 Unspecified systolic (congestive) heart failure; I48.19 Other persistent atrial fibrillation
CPT/HCPCS: 36415; 80048